=== PATIENT | male | born 1940 | race Caucasian/White ===

== ENCOUNTER 2023-09-17 11:21 | Emergency (ER) | payer MEDICARE, BC, SELFPAY ==
[2023-09-17] VITALS (7 sets, daily range): BP systolic 123–166; BP diastolic 57–78; BMI 23.1
[2023-09-17 12:09] LABS: % Basophils 0.2 % (0-2); % Eosinophils 0.4 % (0-6); % Immature Granulocytes 0.4 % (0-0.5); % Lymphocytes 14.9 % (20.5-51.1); % Neutrophils 79.1 % (42.2-75.2); Absolute Lymphocytes 0.7 10^3/uL (1.2-3.4); Absolute Monocytes 0.2 10^3/uL (0.1-0.6); Absolute Neutrophils 3.8 10^3/uL (1.4-6.5); Hematocrit 35.1 % (39.0-52.0); Hemoglobin 12.4 g/dL (13.0-18.0); Mean Corp Hgb Conc. 35.3 g/dL (33.0-37.0); Mean Corpuscular Hgb 34.4 pg (27.0-31.0); Mean Corpuscular Volume 97.5 fL (80.0-94.0); Mean Platelet Volume 10.5 fL (7.4-10.4); Nucleated Red Blood Cells % 0 % (-); Platelet Count 206 10^3/uL (130-400); Red Cell Dist. Width 12.8 % (11.5-14.5); White Blood Cell Count 4.8 10^3/uL (4.8-10.8)
[2023-09-17 12:13] LABS: ALT (SGPT) 29 U/L (0-50); AST (SGOT) 30 U/L (17-59); Albumin 4.4 g/dl (3.5-5.0); Alkaline Phosphatase 78 U/L (38-126); Blood Urea Nitrogen 25 mg/dl (9-20); Calcium 9.8 mg/dl (8.4-10.2); Carbon Dioxide 28 mmol/L (22-30); Chloride 98 mmol/L (98-107); Estimated Creatinine Clearance 46 ml/min; Glucose 172 mg/dl (70-99); Potassium 4.5 mmol/L (3.5-5.1); Sodium 133 mmol/L (135-145); Total Bilirubin 0.6 mg/dl (0.2-1.3); eGFR > 60.00
[2023-09-17 12:21] LABS: Troponin I < 0.012 ng/ml
--- NOTE | 2023-09-17 13:08 | ED.GENMED ---
History of Present Illness
General
Chief Complaint: Weakness
Source: patient and ambulance crew
Exam Limitations: none
Time Seen by Provider: 09/17/23 11:59
Nursing documentation reviewed up to this point in time: agreed with
History of Present Illness
History of Present Illness:
83-year-old male presents emergency room complaining of weakness, feeling sick and nauseous. He was walking in the kitchen and developed increasing weakness and nausea. He fell into a wall. He denies hitting his head, loss of consciousness or
neck pain.
Past History
Past History
ED Past Medical History: GERD, HTN, Hypercholesterolemia, Psychiatric (Anxiety) and Other (Constipation, irritable bowel)
ED Past Surgical History: Tonsilectomy
Social History
Tobacco: Non-smoker
Alcohol: None
Personal:
Living: with family
Employment: Retired
Family History
Family History: Other (Noncontributory)
Review of Systems
Review of Systems
Allergies reviewed?: Yes
All Other Systems: Not applicable
Constitutional: Reports no symptoms
EENT: Reports no symptoms
Respiratory: Reports no symptoms
Cardiac: Reports no symptoms
ABD/GI: Reports nausea
: Reports no symptoms
Musculoskeletal: Reports no symptoms
Neurological: Reports weakness
Endocrine: Reports no symptoms
Hematologic/Lymphatic: Reports no symptoms
Psychiatric: Reports no symptoms
Phy Exam
Physical Exam
Physical Exam:
Physical Exam
General: no apparent distress, not acutely ill
Neck: supple. no meningeal signs. normal posterior pharynx
Heart: s1/s2 bradycardia, no murmur. equal radial
pulses.
HEENT: Pupils equal round reactive to light, EOMI
Lungs: no acute respiratory distress. clear bilaterally, mild chest wall tenderness to palpation
Abdomen: normal bowel sounds. not tender. no CVAT
Neuro: alert and oriented. no focal neurological deficits cranial nerves II through XII intact
Skin: no rash
Psychiatric: well kept. interactive and cooperative
Extremities: no edema. no calf tenderness. negative homans. good distal pulses
Course
Orders/Labs/Results
Orders:
Orders
09/17/23 11:26
Electrocardiogram (*1) Urgent
Reason for Study: Chest Pain
EKG- Treatment ONCE
09/17/23 11:40
Cardiac Monitoring- Treatment ONCE
09/17/23 11:41
Complete Blood Count/With Diff Urgent
Comprehensive Metabolic Panel Urgent
Troponin I Urgent
09/17/23 12:35
CR Chest - 2 Views Urgent
Comment:
Reason For Exam: fall, hit chest
Abnormal Lab Results
09/17/23
11:41
RBC 3.60 L 10^6/uL
(4.70-6.10)
Hgb 12.4 L g/dL
(13.0-18.0)
Hct 35.1 L %
(39.0-52.0)
MCV 97.5 H fL
(80.0-94.0)
MCH 34.4 H pg
(27.0-31.0)
MPV 10.5 H fL
(7.4-10.4)
Absolute Lymphs (auto) 0.7 L 10^3/uL
(1.2-3.4)
Neutrophils % 79.1 H %
(42.2-75.2)
Lymphocytes % 14.9 L %
(20.5-51.1)
Sodium 133 L mmol/L
(135-145)
BUN 25 H mg/dl
(9-20)
Glucose 172 H mg/dl
(70-99)
09/17/23 11:41
09/17/23 11:41
Vital Signs
Initial and Last Documented VS:
Initial Vital Signs
Pulse Resp BP
49 11 124/57
09/17/23 11:24 09/17/23 11:24 09/17/23 11:24
Last Documented Vital Signs
Pulse Resp BP Pulse Ox
59 17 162/78 98
09/17/23 15:45 09/17/23 15:45 09/17/23 15:00 09/17/23 15:45
MDM/Problems Addressed
Differential Diagnosis Includes:
Near syncope, tachybradycardia syndrome
MDM/Problems Addressed:
83-year-old male with tachybradycardia syndrome, near syncope episode. Cardiology consulted to see patient and evaluate for pacemaker. Patient has followed with Dr. Holly. Await cardiology consult and patient decision on whether he wants to
stay for pacemaker.
Chronic conditions affecting care:
Tachybradycardia syndrome
Acute Exacerbation and/or Progression of Chronic Illness: Arrhythmia
*Radiology
Radiology exam reviewed: radiology read reviewed (Chest x-ray no acute findings)
*Pulse Oximetry
Patient hypoxic: no
*EKG
Interpreted by ED Provider?: Yes
EKG Intrepretation Date: 09/17/23
EKG Intrepretation Time: 11:30
Interpretation: abnormal
Comparison EKG: no changes
Heart Rate: 45
Rate: bradycardiac
Rhythm: sinus
[place]: normal axis
Interval: normal interval
QRS Pattern: normal QRS
Ischemia: no ischemia
*Machine Burrer Interpretation
Rate: bradycardiac
Interpretation: abnormal
Heart Rate: 45
Rhythm: sinus
*Critical Care Note
Total Time (30-74mins, 75-104mins- exclusive of procedures): 30
comment:
Critical care statement: A total of 30 minutes of critical care time was provided for this patient. This includes management of unstable vital signs, evaluation of the patient at bedside, reviewing the patient's pertinent medical records, discussion
with consultants, review of old EKGs and review of pertinent medical records. This time with separate from time utilized to perform the aforementioned documented procedures
Patient Management
Social determinants of health affecting care: Living situation
Discussion with other providers: Crime Investigator Special Agent (Cardiology, Dr. Frank)
ED Attending Note
-
Portions of this chart may have been created with voice recognition software.� Occasional wrong word or��sound alike� substitutions may have occurred due to the inherent limitations of voice recognition software.
Discharge Plan
Departure
Patient Disposition: Home (Routine Discharge)
Date of Disposition: 09/17/23
Time of Disposition: 15:43
Patient with high blood pressure during this ER visit?: Yes
Condition: Good
Discharge Problem:
Near syncope, Bradycardia with 41-50 beats per minute
Instructions: Near Fainting (DC)
Prescriptions:
No Action
clopidogrel 75 mg Tablet
75 mg PO QPM
desloratadine 5 mg Tablet
5 mg PO DAILY PRN (Reason: Allergies)
rosuvastatin 20 mg Tablet
20 mg PO DAILY
polyethylene glycol 3350 [Miralax] 17 gram Powder In Packet
17 g PO DAILY
magnesium oxide 400 mg (241.3 mg magnesium) tablet
400 mg PO BID
amlodipine 10 mg tablet
10 mg PO QPM
pantoprazole 40 mg tablet,delayed release (DR/EC)
40 mg PO DAILY
buspirone 30 mg tablet
30 mg PO BID
lisinopril 10 mg tablet
10 mg PO DAILY
Linzess 290 mcg capsule
290 mcg PO DAILY
Ure-Na 15 gram Powder In Packet
1 packet PO NOON
lorazepam 0.5 mg tablet
0.5 mg PO HS
olopatadine [Pataday] 0.2 % Drops
1 drp OPHTHALMIC (EYE) DAILY PRN (Reason: allergy symptoms)
Referrals:
Holly,Herrera D., MD [Active] -
Daniel Jimenez MD [Family Provider] -
Activity Restrictions/Additional Instructions:
Please follow up with Dr. Holly for pacemaker placement. Return to the ER if you pass out.
Interventions
Interventions:
*Risk Screen - Suicide Last Done: 09/17/23 11:40
*General Assessment Last Done: 09/17/23 11:33
*Neglect/Abuse Screening Last Done: 09/17/23 11:33
ED- Fall Risk Assessment Last Done: 09/17/23 15:45
*ED COVID-19 Vaccine History Last Done: 09/17/23 11:39
*Nursing Disposition Last Done: 09/17/23 15:45
ED- Cardiac Assessment Last Done: 09/17/23 11:43
ED- Neurological Assessment Last Done: 09/17/23 11:43
ED- Pulmonary Assessment Last Done: 09/17/23 11:43
Discharge Date and Time
Discharge Date/Time: 09/17/23 15:45
Print Language: WALLISIAN
--- NOTE | 2023-09-17 14:16 | CON.CAR ---
Addendum entered and electronically signed by Demian Mujica MD 09/17/23 15:45:
I saw and examined the patient.
The Railroad Brake Operator's note was reviewed and I agree with the note.
Comment: Briefly, 83-year-old man past medical history of symptomatic bradycardia who presents following an episode of weakness this morning and we are asked to evaluate
Episode occurred earlier this morning, patient arose from bed and felt weak and had a controlled fall to the ground but no freya syncope
Patient tells me he is currently back to his baseline
Heart rate and blood pressure are stable
Twelve-lead ECG is unremarkable
Currently planned for permanent pacemaker with Dr. Holly in November. Discussed with patient, daughter and at bedside and son via speaker phone and suggested that we try to move up pacemaker implant and they are agreeable.
Stable for discharge from my perspective with plan for outpatient pacemaker implant in the near future
Original Note:
Consultation
Consultation Request
Date/Time Consultation Requested: 09/17/2023
Date/Time Consultation Performed: 09/17/2023
Requesting Provider: Dr. Wetzel
Performing Provider: Dr. Mujica
Reason for Consultation: Near syncope, bradycardia
Medical History
-
History of Present Illness:
HPI: Rex is an 83 year old male with PMH of paroxysmal atrial tachycardia, hypertension, hyperlipidemia, bradycardia. He has known symptomatic bradycardia and was seen in consultation by Dr. Holly regarding pacemaker implant 08/31/2023. He was
symptomatic with ongoing fatigue, but a the time had no episodes of near syncope or syncope. Recent monitor showed that his HR drops to the 30s to 40s at times. He was arranged for PPM implantation 11/23/23 as patient preferred waiting until after
he had hernia repair surgery. Hernia repair was initially scheduled 09/12, but patient needed to reschedule due to family conflict on that date. He is currently scheduled for hernia repair 10/25/2023. Early this AM, he woke up and felt lightheaded,
weak, and nauseous. He then collapsed, falling into a nearby wall, hitting his chest and arm. He and his deny any loss of consciousness or head injury. He states he checked his BP and it was in the 140s around the time of his event, but does
note it has been lower at times. He came to ER for evaluation and workup has been unremarkable other than bradycardia with HR in the 40s. Cardiology consulted for evaluation given near syncope with known symptomatic bradycardia. He feels well
currently other than some soreness in his chest.
PMH:
Sinus bradycardia
Paroxysmal atrial tachycardia
Coronary calcification by CTA
HTN
Hyperlipidemia
Past Medical History
Past Medical History: Other (In HPI)
Past Surgical History: Tonsilectomy
Social History
Tobacco: Non-Smoker
Alcohol: Occasional
Drug: None
Personal:
Living: With Family
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
Family History
Family History: Cancer
Allergies / Home Medications
Allergy/AdvReac Type Severity Reaction Status Date / Time
aspirin Allergy Intermediate Unknown Verified 09/17/23 11:33
codeine Allergy Nausea Verified 09/17/23 11:33
tramadol Allergy Nausea Verified 09/17/23 11:33
�Medication �Instructions �Recorded �Confirmed �Type
clopidogrel 75 mg tablet 75 mg PO DAILY Blood clot 12/20/21 09/17/23 History
prevention/tx
desloratadine 5 mg tablet 5 mg PO DAILY PRN Allergies 12/20/21 09/17/23 History
rosuvastatin 20 mg tablet 20 mg PO DAILY High cholesterol 12/20/21 09/17/23 History
amlodipine 10 mg tablet 10 mg PO QPM 09/17/23 09/17/23 History
buspirone 30 mg tablet 30 mg PO BID 09/17/23 09/17/23 History
linaclotide 290 mcg capsule 290 mcg PO DAILY 09/17/23 09/17/23 History
(Linzess)
lisinopril 10 mg tablet 10 mg PO DAILY 09/17/23 09/17/23 History
lorazepam 0.5 mg tablet 0.5 mg PO HS 09/17/23 09/17/23 History
magnesium oxide 400 mg (241.3 mg 400 mg PO BID 09/17/23 09/17/23 History
magnesium) tablet
olopatadine 0.2 % eye drops 1 drp ophthalmic (eye) DAILY PRN 09/17/23 09/17/23 History
allergy
pantoprazole 40 mg tablet,delayed 40 mg PO DAILY 09/17/23 09/17/23 History
release
polyethylene glycol 3350 17 gram 17 g PO DAILY 09/17/23 09/17/23 History
oral powder packet (Miralax)
urea 15 gram oral powder packet 1 packet PO NOON 09/17/23 09/17/23 History
(Ure-Na)
Review of Systems
-
History Source: Patient
All other systems: Negative unless noted
Physical Exam
Vital Signs
Pulse Resp BP Pulse Ox
43 21 123/59 99
09/17/23 12:30 09/17/23 12:30 09/17/23 12:00 09/17/23 12:30
Lab Results
09/17/23 11:41
09/17/23 11:41
Troponin I < 0.012 ng/ml 09/17/23 11:41
Physical Exam
General: Well Developed, Well Nourished and No Apparent Distress
HEENT: Normocephalic, Anicteric and Moist Mucous Membranes
Respiratory: Clear and Non Labored Respirations
Cardiac: S1/S2 and Regular Rhythm
Musculoskeletal: No Clubbing, No Cyanosis and No Edema
Skin: Warm and Dry
Neuro: AO x 3 and Nonfocal/Grossly Intact
Psych: Calm
Impression / Plan
-
PCP: Dr. Jimenez
Physical Geographer: Dr. Stephenson
Electrophysiology: Dr. Holly
Impression:
Sinus bradycardia
Paroxysmal atrial tachycardia
Coronary calcification by CTA
HTN
Hyperlipidemia
Plan:
-Presented after episode of near syncope this morning. Awoke and felt weak and nauseous and collapsed, falling into the wall, hitting his elbow and chest. Denies any overt syncope or loss of consciousness.
-He has known symptomatic bradycardia with fatigue. He is not on any AV indigo blockers. Continue to avoid.
-EKG from ER reviewed, SR with HR 45 bpm.
-Currently scheduled for PPM implant 11/23/[address] Holly.
-Discussed with what appears to be progressively worsening symptomatic bradycardia, ideally would implant pacemaker sooner.
-As he has not had any overt syncope, does not need urgent pacemaker implantation and patient prefers to avoid hospitalization currently.
-Will reach out to procedure schedulers to see if we are able to facilitate a sooner pacemaker implant appointment.
-Otherwise, he is stable from a cardiac standpoint. His blood pressures are stable. Should continue amlodipine and lisinopril.
-Continue Plavix which he is on for risk factor reduction given coronary calcification seen on prior CTA. Intolerant to aspirin.
-Explained to patient and family that he if he goes home without PPM implantation, he is at higher risk of recurrent episodes of symptomatic bradycardia with near syncope and potentially syncope and injuries that may occur as a result of this.
HPI: Rex is an 83 year old male with PMH of paroxysmal atrial tachycardia, hypertension, hyperlipidemia, bradycardia. He has known symptomatic bradycardia and was seen in consultation by Dr. Holly regarding pacemaker implant 08/31/2023. He was
symptomatic with ongoing fatigue, but a the time had no episodes of near syncope or syncope. Recent monitor showed that his HR drops to the 30s to 40s at times. He was arranged for PPM implantation 11/23/23 as patient preferred waiting until after
he had hernia repair surgery. Hernia repair was initially scheduled 09/12, but patient needed to reschedule due to family conflict on that date. He is currently scheduled for hernia repair 10/25/2023. Early this AM, he woke up and felt lightheaded,
weak, and nauseous. He then collapsed, falling into a nearby wall, hitting his chest and arm. He and his deny any loss of consciousness or head injury. He states he checked his BP and it was in the 140s around the time of his event, but does
note it has been lower at times. He came to ER for evaluation and workup has been unremarkable other than bradycardia with HR in the 40s. Cardiology consulted for evaluation given near syncope with known symptomatic bradycardia. He feels well
currently other than some soreness in his chest.
Data Reviewed
-
EKG: Tracing Personally Visualized and interpreted
Radiology: Report Reviewed by me
Labs: Labs Reviewed by me
Old Records: Reviewed
== END 2023-09-17 15:45 | disposition home or self-care (01) ==
LOC: EMR 11:21
PROVIDERS: EMERGENCY PHYSICIAN Emergency Medicine; FAMILY PHYSICIAN Internal Medicine
DX: R53.1 Weakness (principal); K21.9 Gastro-esophageal reflux disease without esophagitis; I10 Essential (primary) hypertension; E78.00 Pure hypercholesterolemia, unspecified; F41.9 Anxiety disorder, unspecified; I25.10 Atherosclerotic heart disease of native coronary artery without angina pectoris; K58.9 Irritable bowel syndrome, unspecified; Z83.49 Family history of other endocrine, nutritional and metabolic diseases
CPT/HCPCS: 99283; 71046; 80053; 84484; 85025; 93005

== ENCOUNTER 2023-10-13 08:02 | Day surgery (SDC) | payer MEDICARE, BC, SELFPAY ==
[2023-10-13] VITALS (18 sets, daily range): BP systolic 122–158; BP diastolic 69–83; BMI 22.6
--- NOTE | 2023-10-13 10:22 | ITS.CL.PACE ---
Economics Instructor - Pacemaker Implant
Pacemaker Implant
Procedure Report:
Date of Procedure: October 13, 2023
Patient : 1940
Procedure: Pacemaker Implantation.
Indication: Sick sinus syndrome symptomatic
�
Implants:
Pulse Generator: Medtronic; Model# W1 DR 01; SN: [id number]
RA Lead: Medtronic; Model# 4574; SN: [id number]
RV Lead: Medtronic; Model# 4074; SN: [id number]
�
Technique: A time out was performed. The procedure site was identified. The patient was anesthetized by the anesthesia service. Preoperative sedation was administered. The patient was prepped and draped in the usual fashion. Local anesthetic was
applied to the left prepectoral subcutaneous tissue. A 3 inch incision was made 2.5 inches below the left clavicle. A subcutaneous pocket was created with blunt and sharp dissection and hemostasis controlled with Bovie cautery. The left axillary
vein was accessed within the pocket without difficulty. Hemostasis was excellent. The leads were introduced with 7 Fr hemostatic peel away introducer sheaths. The ventricular lead was placed at the right ventricular apex. The atrial lead was placed
in the right atrial appendage. 10 volt pacing did not capture the diaphragm. The leads were secured to the pectoralis muscle and fascia. The leads were appropriately attached to the device. The pocket was irrigated with antibiotic solution. The
device and leads were placed in the pocket. The incision was closed in three layers with absorbable suture. The estimated blood loss was minimal. There were no complications.��
�
Lead Analysis:
RA lead: P: 3.2 mV; Threshold: 0.4 V @ 0.5��ms; Impedance: 640 ohms.
RV lead: R: 7 mV; Threshold: 0.75 V @ 0.5��ms; Impedance: 890 ohms.
�
Final Programming: AAIR�DDDR 60-130
�
Conclusion: Uncomplicated Medtronic pacemaker implant.
�
Recommendation: Routine post pacemaker care.
�
[2023-10-13] MEDS: TYLENOL 650 MG PO ×3 (11:09→19:48)
[2023-10-13] MEDS: NSS 500 IV (11:44)
[2023-10-13] MEDS: LINZESS 290 MCG PO (11:44)
[2023-10-13] MEDS: ZESTRIL 10 MG PO (12:28)
[2023-10-13] MEDS: PROTONIX 40 MG PO (12:29)
--- NOTE | 2023-10-13 14:02 | PTCARENOTE ---
Received patient from pacu after PPM placed left upper chest. Pressure dressing in place over aquacel dressing which is dry and intact with immobilizer in place. Oriented to the room and plan of care. Call white in reach, son at the bedside.
--- NOTE | 2023-10-13 15:21 | CM ---
CM following for DC planning needs.
Met w/ patient at bedside to complete initial assessment. Pt. c/o pain so conversation was cut short.
Pt. was indep. prior to admission, resides w/ spouse.
Anticipated DC plan is for home, no needs.
Will cont. to follow.
[2023-10-13] MEDS: MIRALAX 17 GRAMS PO (15:56)
[2023-10-13] MEDS: ANCEF 5 IV ×2 (15:57→23:02)
[2023-10-13] MEDS: ANESTHETIC LOZENGE 1 LOZENGE PO (15:57)
[2023-10-13] MEDS: FLUSH (NSS) 2 FLUSH IV (15:58)
--- NOTE | 2023-10-13 16:28 | PTCARENOTE ---
Patient with several complaints, having 6/10 discomfort at the incisional site which is dry and intact, no signs of hematoma noted. Does not like the immobilizer, feels like it is constricting his breathing. Immobilizer adjusted, reinforced
importance and activity restrictions. Complaining of a dry mouth and sore throat, given cepacol lozenge. Worried about medications he missed this morning, all verified with him and patient given his daily dose of miralax as requested. Medicated for
pain with tylenol, assisted to the bathroom, voided and moved his bowels. Sitting oob in the chair, son and his in visiting, call white within reach.
[2023-10-13] MEDS: CRESTOR 20 MG PO (18:18)
[2023-10-13] MEDS: OCEAN, SALINE MIST 1 SPRAYS NASAL (18:19)
[2023-10-13] MEDS: NORVASC 10 MG PO (18:19)
[2023-10-13] MEDS: BUSPAR 30 MG PO (19:46)
[2023-10-13] MEDS: MAGNESIUM OXIDE 500 MG PO (19:46)
[2023-10-13] MEDS: ATIVAN 1 MG PO (22:09)
[2023-10-14] MEDS: TYLENOL 650 MG PO (00:01)
[2023-10-14] MEDS: ANESTHETIC LOZENGE 1 LOZENGE PO (03:02)
[2023-10-14 03:03] VITALS: BP 141/83
[2023-10-14] MEDS: FLEXERIL 5 MG PO (03:51)
[2023-10-14 03:57] LABS: Hematocrit 35.8 % (39.0-52.0); Hemoglobin 12.8 g/dL (13.0-18.0); Mean Corp Hgb Conc. 35.8 g/dL (33.0-37.0); Mean Corpuscular Hgb 35.1 pg (27.0-31.0); Mean Corpuscular Volume 98.1 fL (80.0-94.0); Mean Platelet Volume 10.4 fL (7.4-10.4); Platelet Count 195 10^3/uL (130-400); Red Blood Cell Count 3.65 10^6/uL (4.70-6.10); Red Cell Dist. Width 12.4 % (11.5-14.5)
--- NOTE | 2023-10-14 04:12 | PTCARENOTE ---
Assumed care of patient at approx 23:30. Tele monitor shows Apaced. Pt c/o multiple times of: sore throat, left shoulder 'muscle spasm', and pain at the surgical site. Left chest wall dressing C/D/I and pressure dressing present. LUE in sling. Pt
aware of activity restrictions. Patient refuses to take any narcotics d/t hx of IBS and gastroparesis. Tylenol administered for discomfort, and had no relief. Despite repositioning patient and relaxation technique. Pt still complains of 8/10 pain at
surgical site. Susan Olivier CVPA made aware and orders placed for 5mg Flexeril. Medication administered--see MAR for further details. Pt also received Lozenge for sore throat and still c/o of sore throat and congestion. POC ongoing. Call white
within reach.
[2023-10-14 04:20] LABS: Blood Urea Nitrogen 16 mg/dl (9-20); Calcium 9.5 mg/dl (8.4-10.2); Carbon Dioxide 25 mmol/L (22-30); Chloride 95 mmol/L (98-107); Estimated Creatinine Clearance 50 ml/min; Glucose 100 mg/dl (70-99); Magnesium 1.9 mg/dl (1.6-2.3); Potassium 4.2 mmol/L (3.5-5.1); Sodium 132 mmol/L (135-145); eGFR > 60.00
[2023-10-14] MEDS: LINZESS 290 MCG PO (06:31)
[2023-10-14 06:35] VITALS: BP 141/80
[2023-10-14] MEDS: BUSPAR 30 MG PO (07:25)
[2023-10-14] MEDS: PROTONIX 40 MG PO (07:25)
[2023-10-14] MEDS: MAGNESIUM OXIDE 500 MG PO (07:25)
[2023-10-14] MEDS: ZESTRIL 10 MG PO (07:29)
[2023-10-14] MEDS: MIRALAX 17 GRAMS PO (08:35)
--- NOTE | 2023-10-14 08:46 | W.PN.CARDCBS ---
Addendum entered and electronically signed by Herrera Holly MD 10/14/23 10:17:
Patient reporting pain this a.m. He seems almost inconsolable
Site clean dry and intact without hematoma
Chest x-ray reviewed with stable lead positions in the right atrium right ventricle
Appropriate atrial sensing and pacing as well as ventricular sensing on telemetry
Exam:
No hematoma
Otherwise well and as per INTEGRATED CIRCUIT IC LAYOUT DESIGNER note
Impression:
SSS/Symptomatic bradycardia
post DC PPM Medtronic 10/14/23
HTN
HLD
NSVT
chronic mild hyponatremia
GERD
BPH
Gastroparesis
CAD by coronary calcium score
b/l inguinal hernia for surgery 11/28
Plan:
post device, mild-mod inc pain
tylenol for pain PRN, refusing narcotics with gastroparesis
site stable pressure dressing removed
tele Ap occ Vpacing
CXR no PTX, leads in position
Hold plavix 7 days
HTN - continue lisinopril, amlodipine
Activity restrictions reviewed
inc check 1 week
home today
Original Note:
Today's Communication / Plan
-
Post DC PPM
stable for d/c home
Impression / Plan
-
PCP: Daniel Jimenez MD
CDY: Dr. Stephenson
Impression:
SSS/Symptomatic bradycardia
post DC PPM Medtronic 10/14/23
HTN
HLD
NSVT
chronic mild hyponatremia
GERD
BPH
Gastroparesis
CAD by coronary calcium score
b/l inguinal hernia for surgery 11/28
Plan:
post device, mild-mod inc pain
tylenol for pain PRN, refusing narcotics with gastroparesis
site stable pressure dressing removed
tele Ap occ Vpacing
CXR no PTX, leads in position
Hold plavix 7 days
HTN - continue lisinopril, amlodipine
Activity restrictions reviewed
inc check 1 week
home today
Progress Note - Chiller Technician
Subjective
Date of Service: October 14, 2023
mild-mod inc pain some relief with tylenol, no cp, sob
Objective
Labs:
10/14/23 03:13
10/14/23 03:13
Labs
Hgb 12.8 g/dL (13.0-18.0) L 10/14/23 03:13
Hct 35.8 % (39.0-52.0) L 10/14/23 03:13
Plt Count 195 10^3/uL (130-400) 10/14/23 03:13
Sodium 132 mmol/L (135-145) L 10/14/23 03:13
Potassium 4.2 mmol/L (3.5-5.1) 10/14/23 03:13
BUN 16 mg/dl (9-20) 10/14/23 03:13
Creatinine 1.0 mg/dL (0.7-1.3) 10/14/23 03:13
Glucose 100 mg/dl (70-99) H 10/14/23 03:13
Vital Signs and I&O:
Vital Signs
Temp Pulse Resp BP Pulse Ox
97.9 F 60 18 141/80 96
10/14/23 06:34 10/14/23 08:00 10/14/23 06:34 10/14/23 07:29 10/14/23 06:34
Vital Signs
Temp Pulse Resp BP Pulse Ox
97.9 F 60 18 141/80 96
10/14/23 06:34 10/14/23 08:00 10/14/23 06:34 10/14/23 07:29 10/14/23 06:34
Intake & Output
10/12/23 10/13/23 10/14/23 10/15/23
06:59 06:59 06:59 06:59
Intake Total 1800 / 1800
Output Total 0 / 0
Balance -400 / -400
Physical Exam
Physical Exam
NAD< AOX3
S1, S2, RRR
CTAB, non labored, no wheeze
SNTND bsx4
L CW Aquacel dressing c/d/i no HT, pressure dressing removed
--- NOTE | 2023-10-14 09:43 | PTCARENOTE ---
Received patient this morning resting in bed, aquacel dressing was dry and intact. Patient seen by Dr. Holly and is ok for discharge. Chasity Sheehan FIBERGLASS BONDING MACHINE TENDER in to see the patient and pressure dressing removed. Patient stating he did not expect as much pain as
he had from procedure, states 'maybe I have a low pain tolerance'. OOB ambulating in the room without difficulty, ate a full breakfast, all morning meds given. Reviewed discharge instructions in detail and post op restrictions with the patient and
his son and they state their understanding. Patient discharged home with his son, aware of follow up appointments and that he can resume plavix in 7 days.
--- NOTE | 2023-10-14 10:14 | CM ---
Pt. for DC to home today.
There are no identified needs.
Plan is for home, no needs.
--- NOTE | 2023-10-14 10:56 | W.DS.TRANS ---
DC Summary - Corporate Travel Counselor
-
Discharge Instructions:
Discharge Diagnosis/Procedures Pacemaker implant
Diet Low Cholesterol
Driving Restrictions No driving for 1 week
Bathing Restrictions OK to Shower
Instructions:
Stand-Alone Forms: DC Inst - Implanted Device
Changes to Home Medications: No
Discharge Medications:
DC Medications w/original date entered in [facility]
clopidogrel 75 mg tablet 75 mg PO QPM Blood clot prevention/tx 12/20/21
desloratadine 5 mg tablet 5 mg PO DAILY PRN Allergies 12/20/21
rosuvastatin 20 mg tablet 20 mg PO DAILY High cholesterol 12/20/21
amlodipine 10 mg tablet 10 mg PO QPM Blood Clot Prevention/Tx 09/17/23
buspirone 30 mg tablet 30 mg PO BID Mental Health/Anxiety 09/17/23
linaclotide 290 mcg capsule (Linzess) 290 mcg PO DAILY Gastrointestinal Issue 09/17/23
lisinopril 10 mg tablet 10 mg PO DAILY Blood Pressure 09/17/23
lorazepam 0.5 mg tablet 1 mg PO HS Mental Health/Anxiety 09/17/23
magnesium oxide 400 mg (241.3 mg magnesium) tablet 400 mg PO BID Electrolyte Repletion 09/17/23
olopatadine 0.2 % eye drops 1 drp ophthalmic (eye) DAILY PRN allergy symptoms 09/17/23
pantoprazole 40 mg tablet,delayed release 40 mg PO DAILY Gastrointestinal Issue 09/17/23
polyethylene glycol 3350 17 gram oral powder packet (Miralax) 17 g PO DAILY Constipation 09/17/23
urea 15 gram oral powder packet (Ure-Na) 1 packet PO NOON Kidney Disease 09/17/23
Ib Kennedi 1 tab PO HS 10/13/23
Home Medication Changes
Pending Results: No
== END 2023-10-14 09:50 | disposition home or self-care (01) ==
LOC: CATH 08:02
PROVIDERS: Nurse Practitioner Adult Health; ATTENDING PHYSICIAN Internal Medicine Cardiovascular Disease; FAMILY PHYSICIAN Internal Medicine; OTHER PHYSICIAN Internal Medicine Interventional Cardiology
DX: I49.5 Sick sinus syndrome (principal); I10 Essential (primary) hypertension; E78.5 Hyperlipidemia, unspecified; I47.20 Ventricular tachycardia, unspecified; E87.1 Hypo-osmolality and hyponatremia; K21.9 Gastro-esophageal reflux disease without esophagitis; N40.0 Benign prostatic hyperplasia without lower urinary tract symptoms; K31.84 Gastroparesis; I25.10 Atherosclerotic heart disease of native coronary artery without angina pectoris; Z79.02 Long term (current) use of antithrombotics/antiplatelets; Z79.899 Other long term (current) drug therapy
CPT/HCPCS: 33208; 71045; 80048; 83735; 85027; 93005; C1785; C1892; C1898

== ENCOUNTER 2023-10-15 10:51 | Inpatient (IN) | payer MEDICARE, BC, SELFPAY ==
[2023-10-15] VITALS (9 sets, daily range): BP systolic 124–162; BP diastolic 67–80; BMI 22.4; BMI 22.0
--- NOTE | 2023-10-15 07:37 | ED.GENMED ---
History of Present Illness
General
Chief Complaint: Chest Problem
Source: patient and family
Exam Limitations: none
Time Seen by Provider: 10/15/23 07:07
Nursing documentation reviewed up to this point in time: agreed with
History of Present Illness
History of Present Illness:
83 yr old male with history of sick sinus syndrome hypertension hyperlipidemia nonsustained V. tach reflux benign prostatic hyperplasia gastroparesis CAD bilateral inguinal hernia surgery presented to the ED for evaluation of pain. Pt had Pacemaker
placed here on (2 d ago). Son reports he had some chest pain at PM site since this was done with son reports pain is getting worse and now since last night patient has had pain with taking a deep breath worse with movement. He denies any
actual shortness of breath. He denies any fever or chills.
Pacemaker is dual-chamber Medtronic
Past History
Past History
ED Past Medical History: GERD, HTN, Hypercholesterolemia, Psychiatric (Anxiety) and Other (Constipation, irritable bowel)
ED Past Surgical History: Tonsilectomy
Social History
Tobacco: Non-smoker
Alcohol: None
Personal:
Living: with family
Employment: Retired
Family History
Family History: Other (Noncontributory)
Review of Systems
Review of Systems
Allergies reviewed?: Yes
All Other Systems: ROS reviewed and negative except as documented in HPI and ROS
Constitutional: Reports no symptoms
Respiratory: Reports trouble breathing and other (pain with deep breath )
Cardiac: Reports other (sore over PM insertion site )
ABD/GI: Reports no symptoms
: Reports no symptoms
Skin: Reports no symptoms
Neurological: Reports no symptoms
Psychiatric: Reports no symptoms
Phy Exam
General Physical Exam
General Presentation: no apparent distress
General age: appears stated age
General Skin: warm and dry
General Habitus: elderly
General Mental: alert
Cardiovascular Exam
Cardiovascular Exam: regular rate/rhythm, no murmur and normal peripheral pulses
Pulmonary Exam
Pulmonary Exam: lungs clear, no respiratory distress and other (left chest wall with scattered ecchymosis ; no erythema at site of PM )
Neurological Exam
Neurological Exam: alert and oriented x3
Musculoskeletal Exam
Musculoskeletal Exam: full ROM
Skin Exam
Skin Exam: normal color and warm/dry
Psychiatric Exam
Psychiatric Exam: normal mood/affect
Course
Orders/Labs/Results
Orders:
Orders
10/15/23
Electrocardiogram (*1) Stat
Comment: DONE EMR
10/15/23 05:58
ECG [Electrocardiogram (*1)] Urgent
Reason for Study: Chest Pain
EKG- Treatment ONCE
10/15/23 Breakfast
NPO
Allow oral meds: Yes
Allow clear liquids: Sips of Clears
NPO with Ice Chips: Yes
10/15/23 07:45
IV Insert/Care/Rem.- Treatment PRN
Chest [CR Chest - 2 Views ] Urgent
Comment:
Reason For Exam: pain left chest s/p PM insertion
10/15/23 08:26
Complete Blood Count/With Diff Urgent
Comprehensive Metabolic Panel Urgent
10/15/23 08:52
Acetaminophen 1000MG/100Ml [Ofirmev] 1,000 mg in 100 ml IV ONCE
Acetaminophen IV Indication:: ED Narcotic Naive Pt-ONCE
10/15/23 09:49
CARDIOLOGY CONSULT Routine
Consulting Provider: Cristopher Flores
Was physician already notified: Yes
Reason for consult: possible pacemaker implantation complication
10/15/23 10:15
Admit/Transfer Patient As Directed
Co-Sign Provider:
Level of Care: Inpatient admission
Assign to:: Telemetry
Physician / Group: Kelly Salazar
Diagnosis: Pneumothorax following ppm
Reason for Telemetry: Arrhythmia
Date to Stop Telemetry: 10/18/23
Time to Stop Telemetry: 11:00
Reason for Hospitalization: Pneumothorax following ppm
Expected length of stay greater than two midnights?: Yes
ELOS- Estimated Length of Stay in days: 2
I certify the patient meets the requirements for IP care: Yes
PRN Pain Medication Management As Directed
May give lesser potent ordered pain med per pt: Yes
preference::
Protocol:: Medication orders for pain may be administered in a
manner that supports deferring to patient preference
when the pt is:
- Requesting an ordered lesser potent pain medication.
Least to most potent pain medications are defined
as: acetaminophen < NSAID < tramadol < opioids
(morphine, oxycodone, hydromorphone).
- Requesting a lesser dose of the same medication IF
ORDERED.
- Requesting a less intrusive route of administration
if both routes are prescribed by the provider (PO <
IV).
10/15/23 10:19
Code Status As Directed
Resuscitation Status: Full Code
10/15/23 11:00
Loratadine [Claritin] 10 mg PO DAILY
10/16/23 06:00
CR Chest - 2 Views NOON
Comment:
Reason For Exam: follow up pneumothorax
10/18/23 11:00
DC Protocol for Telemetry ONCE
Abnormal Lab Results
10/15/23
08:26
RBC 3.80 L 10^6/uL
(4.70-6.10)
Hct 37.0 L %
(39.0-52.0)
MCV 97.4 H fL
(80.0-94.0)
MCH 35.5 H pg
(27.0-31.0)
Absolute Neuts (auto) 7.2 H 10^3/uL
(1.4-6.5)
Absolute Lymphs (auto) 0.8 L 10^3/uL
(1.2-3.4)
Absolute Monos (auto) 0.9 H 10^3/uL
(0.1-0.6)
Neutrophils % 80.3 H %
(42.2-75.2)
Lymphocytes % 8.8 L %
(20.5-51.1)
Monocytes % 9.7 H %
(1.7-9.3)
Sodium 134 L mmol/L
(135-145)
Chloride 97 L mmol/L
(98-107)
BUN 27 H mg/dl
(9-20)
10/15/23 08:26
10/15/23 08:26
Vital Signs
Initial and Last Documented VS:
Initial Vital Signs
Temp Pulse Resp BP Pulse Ox
98.0 F 67 19 143/75 95
10/15/23 06:04 10/15/23 06:04 10/15/23 06:04 10/15/23 06:04 10/15/23 06:04
Last Documented Vital Signs
Temp Pulse Resp BP Pulse Ox
98.0 F 60 15 134/73 95
10/15/23 06:04 10/15/23 08:30 10/15/23 08:30 10/15/23 08:28 10/15/23 08:33
Traffic Control Signaler consulted with Physician
Traffic Control Signaler consulted with physician?: Yes
Name of Physician Consulted: leon
MDM/Problems Addressed
Differential Diagnosis Includes:
Not limited to pneumothorax pneumonia muscular pain infection (less likely)
MDM/Problems Addressed:
Patient is an 83-year-old male status post pacemaker insertion on Wednesday has had left-sided chest pain though denies shortness of breath. He presents complaining of discomfort however no acute distress nontachycardic nonhypoxic lungs are clear.
Patient x-ray does show a small pneumothorax. Findings reviewed with interventional radiologist as well as admitting hospitalist. Cardiology made aware. Interventional radiology, Dr. Morin did look at image and recommends oxygen and repeat
chest x-ray in several hours to reassess. will adm .
Case reviewed with cardiology group on-call Dr. Flores will adm to hospitalist service.
Chronic conditions affecting care:
Recent pacemaker insertion
*Critical Care Note
Total Time (30-74mins, 75-104mins- exclusive of procedures): Not Applicable
Data Reviewed
Review of Other/Old Records Reveals: Discharge Summary
Patient Management
Discussion with other providers: Hospitalist and Delivery Driver/Customer Service
ED Attending Note
-
Portions of this chart may have been created with voice recognition software.� Occasional wrong word or��sound alike� substitutions may have occurred due to the inherent limitations of voice recognition software.
Discharge Plan
Departure
Patient Disposition: Admit
Date of Disposition: 10/15/23
Time of Disposition: 08:46
Admit to: Telemetry
Admit to doctor: hospitalist
Presentation/result/management discussed w/ accepting MD/DO: Hospitalist
Patient with high blood pressure during this ER visit?: Yes
Condition: Fair
Covid-19: Not Applicable
Discharge Problem:
Pneumothorax on left
Prescriptions:
No Action
clopidogrel 75 mg Tablet
75 mg PO QPM
Rx Instructions:
on hold since surgery
desloratadine 5 mg Tablet
5 mg PO DAILYPRN PRN (Reason: Allergies)
rosuvastatin 20 mg Tablet
20 mg PO DAILY
polyethylene glycol 3350 [Miralax] 17 gram Powder In Packet
17 g PO DAILY@1300
magnesium oxide 400 mg (241.3 mg magnesium) tablet
400 mg PO BID
amlodipine 10 mg tablet
10 mg PO QPM
pantoprazole 40 mg tablet,delayed release (DR/EC)
40 mg PO DAILY
buspirone 30 mg tablet
30 mg PO BID
lisinopril 10 mg tablet
10 mg PO DAILY
Linzess 290 mcg capsule
290 mcg PO DAILY
Ure-Na 15 gram Powder In Packet
1 packet PO Q48H@1200
lorazepam 0.5 mg tablet
1 mg PO HS
olopatadine 0.2 % Drops
1 drp BOTH EYES DAILYPRN PRN (Reason: allergy symptoms)
Ib Kennedi
1 tab PO HS
acetaminophen [Tylenol] 325 mg Tablet
650 mg PO Q6HPRN PRN (Reason: mild pain)
Referrals:
Daniel Jimenez MD [Family Provider] -
Interventions
Interventions:
*Risk Screen - Suicide Last Done: 10/15/23 06:04
*General Assessment Last Done: 10/15/23 06:04
*Neglect/Abuse Screening Last Done: 10/15/23 06:04
*ED COVID-19 Vaccine History Last Done: 10/15/23 06:04
ED- Cardiac Assessment Last Done: 10/15/23 06:53
ED- Pulmonary Assessment Last Done: 10/15/23 06:53
Discharge Date and Time
Print Language: CITIZEN OF [place]
[2023-10-15 08:41] LABS: % Basophils 0.1 % (0-2); % Eosinophils 0.9 % (0-6); % Immature Granulocytes 0.2 % (0-0.5); % Lymphocytes 8.8 % (20.5-51.1); % Monocytes 9.7 % (1.7-9.3); % Neutrophils 80.3 % (42.2-75.2); Absolute Eosinophils 0.1 10^3/uL (0-0.7); Absolute Lymphocytes 0.8 10^3/uL (1.2-3.4); Absolute Monocytes 0.9 10^3/uL (0.1-0.6); Absolute Neutrophils 7.2 10^3/uL (1.4-6.5); Hemoglobin 13.5 g/dL (13.0-18.0); Mean Corp Hgb Conc. 36.5 g/dL (33.0-37.0); Mean Corpuscular Hgb 35.5 pg (27.0-31.0); Mean Corpuscular Volume 97.4 fL (80.0-94.0); Nucleated Red Blood Cells % 0 % (-); Platelet Count 187 10^3/uL (130-400); Red Cell Dist. Width 12.6 % (11.5-14.5)
--- NOTE | 2023-10-15 09:06 | HPS.HSE ---
Family Physician
-
Family Physician: Daniel Jimenez
Chief Complaint
-
chest pain
History of Present Illness
83M SSS recent ppm few days ago HTN HLD GERD BPH Gastroparesis IBS CAD p/w left sided chest pain pleuritic progressive past 24 h. VSS on room air. Labs unremarkable. EKG NSR. CXR noted small left pneumothorax. Discussed with IR no plans for
chest tube placement at this time, recommended oxygen supplementation and repeat imaging later in day. NPO for now in case of need for intervention. Could consider resuming diet if repeat CXR remains stable.
Medical History
Past Medical History
Past Medical History: Reports Other (as above)
Past Surgical History: Reports Other (as above)
Social History
Tobacco: Non-smoker
Alcohol: None
Drug: None
Personal:
Living: With Family
Employment: Retired
Family History
Family History: Not pertinent (reviewed)
Allergies / Home Medications
Allergies reflects when Allergies were last updated in [employer].
Home Medications with original date entered in [employer]
Allergy/Medication List:
Allergies
Allergy/AdvReac Type Severity Reaction Status Date / Time
aspirin Allergy Severe esopheageal Verified 10/15/23 06:03
pain
codeine Allergy Intermediate Nausea Verified 10/15/23 06:03
tramadol Allergy Intermediate Nausea Verified 10/15/23 06:03
Home Medications
clopidogrel 75 mg tablet 75 mg PO QPM Blood clot prevention/tx 12/20/21
desloratadine 5 mg tablet 5 mg PO DAILYPRN PRN Allergies 12/20/21
rosuvastatin 20 mg tablet 20 mg PO DAILY High cholesterol 12/20/21
amlodipine 10 mg tablet 10 mg PO QPM Blood Clot Prevention/Tx 09/17/23
buspirone 30 mg tablet 30 mg PO BID Mental Health/Anxiety 09/17/23
linaclotide 290 mcg capsule (Linzess) 290 mcg PO DAILY Gastrointestinal Issue 09/17/23
lisinopril 10 mg tablet 10 mg PO DAILY Blood Pressure 09/17/23
lorazepam 0.5 mg tablet 1 mg PO HS Mental Health/Anxiety 09/17/23
magnesium oxide 400 mg (241.3 mg magnesium) tablet 400 mg PO BID Electrolyte Repletion 09/17/23
olopatadine 0.2 % eye drops 1 drp BOTH EYES DAILYPRN PRN allergy symptoms 09/17/23
pantoprazole 40 mg tablet,delayed release 40 mg PO DAILY Gastrointestinal Issue 09/17/23
polyethylene glycol 3350 17 gram oral powder packet (Miralax) 17 g PO DAILY@1300 Constipation 09/17/23
urea 15 gram oral powder packet (Ure-Na) 1 packet PO Q48H@1200 Kidney Disease 09/17/23
Ib Kennedi 1 tab PO HS Gastrointestinal Issue 10/13/23
acetaminophen 325 mg tablet (Tylenol) 650 mg PO Q6HPRN PRN mild pain 10/15/23
Review of Systems
-
A 12 point ROS was completed and negative except as noted: Yes
Constitutional: Reports Other (as below)
Physical Exam
Vital Signs
Vital Signs
Temp Pulse Resp BP Pulse Ox
98.0 F 60 15 134/73 95
10/15/23 06:04 10/15/23 08:30 10/15/23 08:30 10/15/23 08:28 10/15/23 08:33
Physical Exam
General: Other (as below)
Laboratory Results
-
10/15/23 08:26
Impression/Plan
-
ROS
General: Denies fever chills night sweats unexpected weight loss
Neuro: Denies seizure shaking loss of consciousness dizziness vertigo
Psych: denies depression hallucinations confusion manic episodes
Endocrine: Denies polyuria polydipsia polyphagia heat/cold intolerance
HEENT: Denies blindness visual disturbances epistaxis, reports nasal congestion post-nasal drip
Pulmonary: left sided pleuritic chest pain intermittent cough sore throat
Cardiovascular: denies chest pain palpitations leg swelling
Hematology: denies signs symptoms of anemia easy bruising/bleeding
Gastrointestinal: denies nausea vomiting diarrhea constipation hematemesis hematochezia melena
Genito-Urinary: denies retention incontinence dysuria
Musculoskeletal: denies joint pain weakness
Dermatology: denies rash laceration bruising
Physical Exam
General: No pallor, cyanosis, or jaundice.
HEENT: Throat clear. PERRLA Normocephalic atraumatic
NECK: Supple. No JVD Carotid Bruits
RESPIRATORY: Lungs clear to auscultation. No crackles wheezes stridor
CVS: S1, S2 normal. RRR. No murmur, rub or gallop. Left sided palpable pacemaker site mild tenderness no significant erythema or discharge noted
ABDOMEN: Soft, non-tender. No distension. BS+/normal.
EXTREMITIES: No peripheral cyanosis or edema.
MAST MAKER: AOx3. conversant and coherent
IMPRESSION:
83M SSS recent ppm few days ago HTN HLD GERD BPH Gastroparesis IBS CAD p/w left sided chest pain pleuritic progressive past 24 h. VSS on room air. Labs unremarkable. EKG NSR. CXR noted small left pneumothorax. Discussed with IR no plans for
chest tube placement at this time, recommended oxygen supplementation and repeat imaging later in day. NPO for now in case of need for intervention. Could consider resuming diet if repeat CXR remains stable.
PLAN:
#SSS Recent ppm
#Chest X-ray appreciated new small left pneumothorax with associate increased pleuritic chest pain
Tele admit for now, if receives chest tube would transfer to IMU for closer monitorin
IR cardio evals requested
per discussion with IR, No plans for chest tube at this time
NPO for now pending repeat CXR noon
Received 1000 mg IV tylenol in ED with improvement in pain noted
Tylenol Q4HWA, patient refuses opiate pain meds due to concern exacerbation gastroparesis
#HTN
resume home antihypertensives with holding parameters
Amlodipine Lisinopril
#HLD
cont statin
#GERD
cont PPI
#Gastroparesis
#IBS
6 small meals a day when diet resumed
resume linzess when diet resumed
#CAD
Plavix on hold 7 days post ppm per Cardio
#Post-nasal drip
Claritin started
dvt ppx SCD
gi ppx PPI
Full Code as per patient and son at bedside
I spent a total of 75 minutes with the patient or on the floor. More than 50% of this time involved counseling and coordination of care.
[2023-10-15 09:10] LABS: ALT (SGPT) 24 U/L (0-50); AST (SGOT) 31 U/L (17-59); Albumin 4.3 g/dl (3.5-5.0); Alkaline Phosphatase 110 U/L (38-126); Blood Urea Nitrogen 27 mg/dl (9-20); Calcium 9.8 mg/dl (8.4-10.2); Carbon Dioxide 27 mmol/L (22-30); Chloride 97 mmol/L (98-107); Estimated Creatinine Clearance 49 ml/min; Glucose 92 mg/dl (70-99); Potassium 4.7 mmol/L (3.5-5.1); Sodium 134 mmol/L (135-145); Total Bilirubin 0.7 mg/dl (0.2-1.3); Total Protein 6.9 g/dl (6.3-8.2); eGFR > 60.00
[2023-10-15] MEDS: OFIRMEV 100 IV (09:11)
[2023-10-15] MEDS: CLARITIN 10 MG PO (11:17)
--- NOTE | 2023-10-15 11:38 | CON.CAR ---
Addendum entered and electronically signed by Cristopher Flores MD 10/15/23 14:51:
I saw and examined the patient.
The MANAGER TRAVEL or PA's note was reviewed and I agree with the note.
Comment: General: Well developed, well nourished in NAD.
Neck: Supple, no JVD, HJR, carotids +2 B/L, no bruits bilaterally.
Heart: Non displaced PMI, RRR, no murmurs, No S3, S4, no rubs.
Lungs: Scattered rhonchi
Left pacer dressing noted
Abdomen: Normal bowel sounds, soft, non-tender, non-distended.
Extremities: No clubbing, cyanosis or edema bilaterally.
Neuro: Grossly nonfocal, awake, alert and oriented x3.
Demarco has history of sick sinus syndrome status post pacer implant on 10/13/2023, PAD, coronary calcification by CTA, hypertension, hyperlipidemia. He has developed shoulder pain as well as left-sided chest discomfort. Discomfort was worse with
taking a deep breath. He presented to the ER and found to have a small left pneumothorax. This is being treated conservatively with repeat chest x-rays being done. His pain has improved. Discussed with patient and son at bedside. Cardiology
status stable at present
Original Note:
Consultation
Consultation Request
Date/Time Consultation Performed: 10/15/23
Requesting Provider: Dr. Newman
Performing Provider: Karin Mccoy PA-C for Dr. Flores
Reason for Consultation: CP post PPM
Medical History
-
Chief Complaint: CP
History of Present Illness:
Patient discharged 10/14/2023 after pacemaker placement. He reports post procedure he had some shoulder pain which was attributed to procedure itself and possible manipulation of left upper extremity during procedure. He reports he then went home
and last evening he had discomfort on the left side of his chest which woke him from sleep. He reports worse with taking a deep breath in. He took Tylenol and tried to go back to sleep, however it awoke him again at 5 AM and his son brought him in
for further evaluation. Chest x-ray with evidence of small left pneumothorax. He feels improved on supplemental O2 and with IV Tylenol. Denies issues with pacemaker site. Reports 1 mild episode of lightheadedness last evening upon standing.
Cardiology consulted for evaluation.
PMH:
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
Paroxysmal atrial tachycardia
Coronary calcification by CTA
HTN
Hyperlipidemia
Past Medical History
Past Medical History: Other (In HPI)
Past Surgical History: Tonsilectomy
Social History
Tobacco: Non-Smoker
Alcohol: Occasional
Drug: None
Personal:
Living: With Family
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
Family History
Family History: Cancer
Allergies / Home Medications
Allergy/AdvReac Type Severity Reaction Status Date / Time
aspirin Allergy Severe esopheageal Verified 10/15/23 06:03
pain
codeine Allergy Intermediate Nausea Verified 10/15/23 06:03
tramadol Allergy Intermediate Nausea Verified 10/15/23 06:03
�Medication �Instructions �Recorded �Confirmed �Type
clopidogrel 75 mg tablet 75 mg PO QPM Blood clot 12/20/21 10/15/23 History
prevention/tx
desloratadine 5 mg tablet 5 mg PO DAILYPRN PRN Allergies 12/20/21 10/15/23 History
rosuvastatin 20 mg tablet 20 mg PO DAILY High cholesterol 12/20/21 10/15/23 History
amlodipine 10 mg tablet 10 mg PO QPM Blood Clot 09/17/23 10/15/23 History
Prevention/Tx
buspirone 30 mg tablet 30 mg PO BID Mental Health/Anxiety 09/17/23 10/15/23 History
linaclotide 290 mcg capsule 290 mcg PO DAILY Gastrointestinal 09/17/23 10/15/23 History
(Linzess) Issue
lisinopril 10 mg tablet 10 mg PO DAILY Blood Pressure 09/17/23 10/15/23 History
lorazepam 0.5 mg tablet 1 mg PO HS Mental Health/Anxiety 09/17/23 10/15/23 History
magnesium oxide 400 mg (241.3 mg 400 mg PO BID Electrolyte Repletion 09/17/23 10/15/23 History
magnesium) tablet
olopatadine 0.2 % eye drops 1 drp BOTH EYES DAILYPRN PRN 09/17/23 10/15/23 History
allergy symptoms
pantoprazole 40 mg tablet,delayed 40 mg PO DAILY Gastrointestinal 09/17/23 10/15/23 History
release Issue
polyethylene glycol 3350 17 gram 17 g PO DAILY@1300 Constipation 09/17/23 10/15/23 History
oral powder packet (Miralax)
urea 15 gram oral powder packet 1 packet PO Q48H@1200 Kidney 09/17/23 10/15/23 History
(Ure-Na) Disease
Ib Kennedi 1 tab PO HS Gastrointestinal Issue 10/13/23 10/15/23 History
acetaminophen 325 mg tablet 650 mg PO Q6HPRN PRN mild pain 10/15/23 10/15/23 History
(Tylenol)
Review of Systems
-
History Source: Patient and Family
All other systems: Negative unless noted
Physical Exam
Vital Signs
Temp Pulse Resp BP Pulse Ox
98.0 F 60 15 134/73 95
10/15/23 06:04 10/15/23 08:30 10/15/23 08:30 10/15/23 08:28 10/15/23 08:33
Lab Results
10/15/23 08:26
10/15/23 08:26
Physical Exam
General: No Apparent Distress, Comfortable and Other (on supp O2)
HEENT: Normocephalic, Anicteric and Moist Mucous Membranes
Respiratory: Clear and Non Labored Respirations
Cardiac: S1/S2 and Regular Rhythm
GI: Soft, Non Tender, Non Distended and Normal Bowel Sounds
Musculoskeletal: No Clubbing, No Cyanosis and No Edema
Skin: Warm, Dry and Other (PPM site without edema, erythema, c/d/i. )
Neuro: AO x 3
Impression / Plan
-
Primary Bird Keeper: Dr. Stephenson
Primary EP: Dr. Holly
Assessment:
Presentation with CP
Small L PTX by CXR 10/15/23
Post operative pain
SSS/Symptomatic bradycardia status post DC PPM Medtronic 10/13/23
HTN
HLD
NSVT
PAT
chronic mild hyponatremia
GERD
BPH
Gastroparesis
CAD by coronary calcium score
b/l inguinal hernia for surgery 11/28
ECHO 2015: EF normal, trace AR
Plan:
-Patient presents with chest discomfort and shoulder discomfort in the setting of recent pacemaker placement 10/13/2023
-Chest x-ray reveals small left pneumothorax. Continue supportive care and supplemental oxygen. For repeat chest x-ray at noon to reassess. At this time does not appear to require chest tube placement
-Continue pain management
-in SR. Pacemaker appears to be appropriately functioning
-Left chest site soft, without erythema or edema. Some oskar-incisional bruising noted, however no firm areas
-Hemoglobin stable at 13.5
-Dr. Stephenson primary junior data analyst
-Discussed with patient and son at bedside. Discussed with ER nursing
Data Reviewed
-
EKG: Tracing Personally Visualized and interpreted
Radiology: Report Reviewed by me
Medical Tests (Nuc Med, Echo etc): Report Reviewed by me
Labs: Labs Reviewed by me
Old Records: Reviewed
--- NOTE | 2023-10-15 12:09 | W.PN.UPDATE ---
Update Note
Progress Note Update
Saw patient and son at bedside. Developed inspiratory pain last evening/overnight and came to ER this am. Small apical pneumo on today CXR (no PTX seen on post implant 10/12 CXR). Symptoms have abated on high flow oxygen and due for repeat CXR in IR
early afternoon. Currently no chest tube requirement but will see what follow up CXR shows. Also discussed if he redevelops symptoms as outpt to come back to hospital. Will see his course but thankfully improving. I took time to answer all
questions.
[2023-10-15] MEDS: PROTONIX 40 MG PO (13:29)
[2023-10-15] MEDS: LINZESS 290 MCG PO (13:29)
[2023-10-15] MEDS: TYLENOL PO (13:32)
[2023-10-15] MEDS: MAGNESIUM OXIDE 500 MG PO (16:41)
[2023-10-15] MEDS: MIRALAX 17 GRAMS PO (16:41)
[2023-10-15] MEDS: TYLENOL 650 MG PO ×2 (16:41→20:21)
--- NOTE | 2023-10-15 16:43 | CM ---
Met with patient and his son at bedside; initial assessment completed
Pharmacy verified: [facility] @ [id number] [facility]
Patient and live in Bi-Level home; 1st floor set up; 7 steps to enter; 8 steps between levels of home; railings present; full bath has stall shower and grab bar
PLOF: retired [employer]; reported he is independent with ambulation, stairs and ADLs; Drives, Walks a couple miles per day. Patient is primary caregiver for his who has Dementia
Son staying with parents until stable; patient's daughter lives nearby
NO SNF or Home Health utilization history
Son will transport home
Plan: discharge to home when medically stable; if home health/VN is recommended, patient is agreeable and agency preference is [facility]
[2023-10-15] MEDS: NORVASC 10 MG PO (17:51)
[2023-10-15] MEDS: BUSPAR 30 MG PO (20:21)
[2023-10-15] MEDS: ATIVAN 1 MG PO (21:41)
[2023-10-16] VITALS (9 sets, daily range): BP systolic 103–150; BP diastolic 54–83; PULSE 61; O2SAT 96
[2023-10-16] MEDS: LINZESS 290 MCG PO (05:51)
[2023-10-16] MEDS: TYLENOL 650 MG PO ×3 (05:51→21:05)
--- NOTE | 2023-10-16 07:08 | W.PN.HOSP.TC ---
Today's Communication/Plan
-
cont oxygen supplementation 2L
monitor respiratory status
pain control
repeat CXR in AM
Assessment / Plan
Assessment / Plan
Physical Exam
General: No pallor, cyanosis, or jaundice.
HEENT: Throat clear. PERRLA Normocephalic atraumatic
NECK: Supple. No JVD Carotid Bruits
RESPIRATORY: Lungs clear to auscultation. No crackles wheezes stridor
CVS: S1, S2 normal. RRR. No murmur, rub or gallop. Left sided palpable pacemaker site mild tenderness no significant erythema or discharge noted
ABDOMEN: Soft, non-tender. No distension. BS+/normal.
EXTREMITIES: No peripheral cyanosis or edema.
HYDRAULIC MINER: AOx3. conversant and coherent
IMPRESSION:
83M SSS recent ppm few days ago HTN HLD GERD BPH Gastroparesis IBS CAD p/w left sided chest pain pleuritic progressive past 24 h. VSS on room air. Labs unremarkable. EKG NSR. CXR noted small left pneumothorax.
PLAN:
#SSS Recent ppm
#Chest X-ray appreciated new small left pneumothorax with associate increased pleuritic chest pain
Tele admit
IR cardio evals appreciated
per discussion with IR, No plans for chest tube at this time
repeat Chest X-rays note stability/improvement in pneumothorax
Tylenol Q4HWA, patient refuses opiate pain meds due to concern exacerbation gastroparesis
pain since improved Tylenol switched to prn.
#HTN
resume home antihypertensives with holding parameters
Amlodipine Lisinopril
#HLD
cont statin
#GERD
cont PPI
#Gastroparesis
#IBS
6 small meals a day
cont home linzess
#CAD
Plavix on hold 7 days post ppm per Cardio
#Post-nasal drip
Claritin started, continue
PT/OT appreciated Home Health
dvt ppx SCD
gi ppx PPI
Full Code
I spent a total of 50 minutes with the patient or on the floor. More than 50% of this time involved counseling and coordination of care.
Anticipated Discharge: Within 24 hours
Subjective/Interval History
-
Date of Service: October 16, 2023
Seen and examined at bedside in no acute distress sitting up comfortably in chair. Reports overall feeling well. Pleuritic chest pain since improved. Patient's Shana present during evaluation.
Objective Data
-
Labs:
Laboratory Results
10/16/23
05:58
WBC Pending
Hgb Pending
Hct Pending
Plt Count Pending
Sodium Pending
Potassium Pending
Chloride Pending
Carbon Dioxide Pending
BUN Pending
Creatinine Pending
Glucose Pending
Calcium Pending
Vital Signs:
Vital Signs
Temp Pulse Resp BP Pulse Ox
98.0 F 61 18 145/83 98
10/16/23 03:07 10/16/23 03:07 10/16/23 03:07 10/16/23 03:07 10/16/23 03:07
I&O
10/15/23 10/16/23 10/17/23
06:59 06:59 06:59
Intake Total 960 / 960
Output Total 1125 / 1125
Balance -165 / -165
[2023-10-16 07:30] LABS: Hematocrit 35.2 % (39.0-52.0); Hemoglobin 12.6 g/dL (13.0-18.0); Mean Corp Hgb Conc. 35.8 g/dL (33.0-37.0); Mean Corpuscular Hgb 35.2 pg (27.0-31.0); Mean Corpuscular Volume 98.3 fL (80.0-94.0); Mean Platelet Volume 10.4 fL (7.4-10.4); Platelet Count 195 10^3/uL (130-400); Red Blood Cell Count 3.58 10^6/uL (4.70-6.10); Red Cell Dist. Width 12.6 % (11.5-14.5)
[2023-10-16 08:06] LABS: Blood Urea Nitrogen 21 mg/dl (9-20); Calcium 9.6 mg/dl (8.4-10.2); Carbon Dioxide 25 mmol/L (22-30); Chloride 97 mmol/L (98-107); Estimated Creatinine Clearance 49 ml/min; Glucose 84 mg/dl (70-99); Potassium 4.7 mmol/L (3.5-5.1); Sodium 135 mmol/L (135-145); eGFR > 60.00
[2023-10-16] MEDS: MAGNESIUM OXIDE 500 MG PO (08:08)
[2023-10-16] MEDS: CRESTOR 20 MG PO (08:08)
[2023-10-16] MEDS: ZESTRIL 10 MG PO (08:08)
[2023-10-16] MEDS: CLARITIN 10 MG PO (08:08)
[2023-10-16] MEDS: PROTONIX 40 MG PO (08:08)
[2023-10-16] MEDS: BUSPAR 30 MG PO ×2 (08:09→21:03)
--- NOTE | 2023-10-16 11:50 | W.PN.CARDCBS ---
Addendum entered and electronically signed by Cristopher Flores MD 10/16/23 12:49:
I saw and examined the patient.
The LANDSCAPE SUPERVISOR or PA's note was reviewed and I agree with the note.
Comment: General: Well developed, well nourished in NAD.
Neck: Supple, no JVD, HJR, carotids +2 B/L, no bruits bilaterally.
Heart: Non displaced PMI, RRR, no murmurs, No S3, S4, no rubs.
Lungs: Clear to auscultation bilaterally, no wheeze, rhonchi, rubs bilaterally,
normal expiratory phase.
Abdomen: Normal bowel sounds, soft, non-tender, non-distended.
Extremities: No clubbing, cyanosis or edema bilaterally.
Neuro: Grossly nonfocal, awake, alert and oriented x3.
Chest x-ray with improving pneumothorax. Stable cardiology status. Discussed with patient and son in detail
Original Note:
Today's Communication / Plan
-
continue mgmt of small PTX
wean supp O2
in sinus/apaced rhythm
OP cardiac follow up arranged
Impression / Plan
-
Primary Meat Stock Clerk: Dr. Stephenson
Primary EP: Dr. Holly
Assessment:
Presentation with CP
Small L PTX by CXR 10/15/23
Post operative pain
SSS/Symptomatic bradycardia status post DC PPM Medtronic 10/13/23
HTN
HLD
NSVT
PAT
chronic mild hyponatremia
GERD
BPH
Gastroparesis
CAD by coronary calcium score
b/l inguinal hernia for surgery 11/28
ECHO 2015: EF normal, trace AR
Plan:
-Continue management of small left pneumothorax per primary service, decreased in size compared to prior. Wean supplemental oxygen as able, currently on 2L NC
-in sinus/apaced rhythm. Pacemaker appears to be appropriately functioning
-Hemoglobin 12.6
-for device check 10/19. Dr. Stephenson primary store host, has follow up in November
Progress Note - Meat Stock Clerk
Subjective
Date of Service: October 16, 2023
weaning supp O2. no issues overnight noted
Objective
Labs:
10/16/23 05:58
10/16/23 05:58
Labs
Hgb 12.6 g/dL (13.0-18.0) L 10/16/23 05:58
Hct 35.2 % (39.0-52.0) L 10/16/23 05:58
Plt Count 195 10^3/uL (130-400) 10/16/23 05:58
Sodium 135 mmol/L (135-145) 10/16/23 05:58
Potassium 4.7 mmol/L (3.5-5.1) 10/16/23 05:58
BUN 21 mg/dl (9-20) H 10/16/23 05:58
Creatinine 1.0 mg/dL (0.7-1.3) 10/16/23 05:58
Glucose 84 mg/dl (70-99) 10/16/23 05:58
Vital Signs and I&O:
Vital Signs
Temp Pulse Resp BP Pulse Ox
97.8 F 62 18 103/56 97
10/16/23 11:00 10/16/23 11:00 10/16/23 11:00 10/16/23 11:00 10/16/23 11:00
Vital Signs
Temp Pulse Resp BP Pulse Ox
97.8 F 62 18 103/56 97
10/16/23 11:00 10/16/23 11:00 10/16/23 11:00 10/16/23 11:00 10/16/23 11:00
Intake & Output
10/14/23 10/15/23 10/16/23 10/17/23
07:59 07:59 07:59 07:59
Intake Total 960 / 960
Output Total 1125 / 1125
Balance -165 / -165
[2023-10-16] MEDS: TYLENOL PO ×4 (14:48→21:16)
[2023-10-16] MEDS: MIRALAX 17 GRAMS PO (15:06)
[2023-10-16] MEDS: URE-NA PO (15:31)
[2023-10-16] MEDS: URE-NA 15 GRAMS PO (16:55)
[2023-10-16] MEDS: NON-FORMULARY ITEM 1 UNIT PO (16:55)
[2023-10-16] MEDS: NORVASC 10 MG PO (17:41)
[2023-10-16] MEDS: ATIVAN 1 MG PO (21:03)
[2023-10-16] MEDS: NON-FORMULARY ITEM 1 TABLET PO (21:04)
[2023-10-17 03:00] VITALS: BP 121/63
[2023-10-17] MEDS: TYLENOL 650 MG PO (05:28)
[2023-10-17] MEDS: LINZESS 290 MCG PO (06:41)
[2023-10-17 07:00] VITALS: BP 100/70
--- NOTE | 2023-10-17 07:19 | W.PN.HOSP.TC ---
Today's Communication/Plan
-
discharge
Assessment / Plan
Assessment / Plan
Physical Exam
General: No pallor, cyanosis, or jaundice.
HEENT: Throat clear. PERRLA Normocephalic atraumatic
NECK: Supple. No JVD Carotid Bruits
RESPIRATORY: Lungs clear to auscultation. No crackles wheezes stridor
CVS: S1, S2 normal. RRR. No murmur, rub or gallop. Left sided palpable pacemaker site mild tenderness no significant erythema or discharge noted
ABDOMEN: Soft, non-tender. No distension. BS+/normal.
EXTREMITIES: No peripheral cyanosis or edema.
BANANA CARRIER: AOx3. conversant and coherent
IMPRESSION:
83M SSS recent ppm few days ago HTN HLD GERD BPH Gastroparesis IBS CAD p/w left sided chest pain pleuritic progressive past 24 h. VSS on room air. Labs unremarkable. EKG NSR. CXR noted small left pneumothorax.
PLAN:
#SSS Recent ppm
#Chest X-ray appreciated new small left pneumothorax with associate increased pleuritic chest pain
Tele admit
IR cardio evals appreciated
per discussion with IR, No plans for chest tube at this time
repeat Chest X-rays note stability/improvement in pneumothorax
Tylenol Q4HWA, patient refuses opiate pain meds due to concern exacerbation gastroparesis
pain since improved Tylenol switched to prn.
Home Oxygen assessment appreciated no needs.
Serial Chest X-rays notes stable improving small left pneumothorax.
Cardiology eval appreciated stable cardiac status
#HTN
resume home antihypertensives with holding parameters
Amlodipine Lisinopril
#HLD
cont statin
#GERD
cont PPI
#Gastroparesis
#IBS
6 small meals a day
cont home linzess
#CAD
Plavix on hold 7 days post ppm per Cardio
#Post-nasal drip
Claritin
PT/OT appreciated Home Health
dvt ppx SCD
gi ppx PPI
Full Code
Medically stable for discharge home with home services and outpatient follow up recommendations.
discussed with patient, patient's son Dedrick, patient's Shana, nurse, and Cardiology
Total Time Preparing Discharge ___40____ minutes including examination of the patient, summary of the hospital stay, instructions for continuing care to all relevant caregivers; and preparation of discharge records, prescriptions, and referral
forms if necessary.
Anticipated Discharge: Today
Subjective/Interval History
-
Date of Service: October 17, 2023
Seen and examined at bedside in no acute distress sitting up comfortably in chair. Reports feeling well. Pain improved. Ambulated with nurse, no oxygen need noted on home oxygen assessment. Denies new acute issues at this time. Eager to go home.
Objective Data
-
Labs:
Laboratory Results
10/17/23
06:00
WBC Pending
Hgb Pending
Hct Pending
Plt Count Pending
Sodium Pending
Potassium Pending
Chloride Pending
Carbon Dioxide Pending
BUN Pending
Creatinine Pending
Glucose Pending
Calcium Pending
Vital Signs:
Vital Signs
Temp Pulse Resp BP Pulse Ox
97.7 F 64 16 121/63 98
10/17/23 03:00 10/17/23 03:00 10/17/23 03:00 10/17/23 03:00 10/17/23 03:00
I&O
10/16/23 10/17/23 10/18/23
06:59 06:59 06:59
Intake Total 960 / 960 2360 / 2360
Output Total 1125 / 1125
Balance -165 / -165 2360 / 2360
[2023-10-17 07:56] LABS: Hematocrit 37.2 % (39.0-52.0); Hemoglobin 13.1 g/dL (13.0-18.0); Mean Corp Hgb Conc. 35.2 g/dL (33.0-37.0); Mean Corpuscular Hgb 34.8 pg (27.0-31.0); Mean Corpuscular Volume 98.9 fL (80.0-94.0); Platelet Count 204 10^3/uL (130-400); Red Blood Cell Count 3.76 10^6/uL (4.70-6.10); Red Cell Dist. Width 12.7 % (11.5-14.5); White Blood Cell Count 5.9 10^3/uL (4.8-10.8)
--- NOTE | 2023-10-17 08:00 | PTCARENOTE ---
4 beat run of vtach overnight. Dr. Lee notified. Strip in chart
[2023-10-17 08:34] LABS: Blood Urea Nitrogen 31 mg/dl (9-20); Calcium 9.9 mg/dl (8.4-10.2); Carbon Dioxide 26 mmol/L (22-30); Chloride 97 mmol/L (98-107); Estimated Creatinine Clearance 54 ml/min; Glucose 97 mg/dl (70-99); Potassium 4.6 mmol/L (3.5-5.1); Sodium 136 mmol/L (135-145); eGFR > 60.00
[2023-10-17] MEDS: MAGNESIUM OXIDE 500 MG PO (09:36)
[2023-10-17] MEDS: PROTONIX 40 MG PO (09:36)
[2023-10-17] MEDS: BUSPAR 30 MG PO (09:36)
[2023-10-17 10:30] VITALS: BP 110/55
[2023-10-17] MEDS: ZESTRIL PO (10:30)
[2023-10-17] MEDS: CRESTOR 20 MG PO (10:31)
[2023-10-17] MEDS: CLARITIN 10 MG PO (10:31)
--- NOTE | 2023-10-17 11:16 | W.PN.CARDCBS ---
Today's Communication / Plan
-
Stable cardiology status
Impression / Plan
-
Primary Local Delivery Driver: Dr. Stephenson
Primary EP: Dr. Holly
Assessment:
Presentation with CP
Small L PTX by CXR 10/15/23
Post operative pain
SSS/Symptomatic bradycardia status post DC PPM Medtronic 10/13/23
HTN
HLD
NSVT
PAT
chronic mild hyponatremia
GERD
BPH
Gastroparesis
CAD by coronary calcium score
b/l inguinal hernia for surgery 11/28
ECHO 2015: EF normal, trace AR
Plan:
He continues to do well.
Discussed with primary service and plan is to repeat chest x-ray and discussed with IR
Stable cardiology status
Etiology of left shoulder pain is likely musculoskeletal not related to pacer implant
Outpatient device check 10/19. Dr. Stephenson primary toys inspector, has follow up in November
Progress Note - Local Delivery Driver
Subjective
Date of Service: October 17, 2023
No complaints
Objective
Labs:
10/17/23 07:33
10/17/23 07:33
Labs
Hgb 13.1 g/dL (13.0-18.0) 10/17/23 07:33
Hct 37.2 % (39.0-52.0) L 10/17/23 07:33
Plt Count 204 10^3/uL (130-400) 10/17/23 07:33
Sodium 136 mmol/L (135-145) 10/17/23 07:33
Potassium 4.6 mmol/L (3.5-5.1) 10/17/23 07:33
BUN 31 mg/dl (9-20) H 10/17/23 07:33
Creatinine 0.9 mg/dL (0.7-1.3) 10/17/23 07:33
Glucose 97 mg/dl (70-99) 10/17/23 07:33
Vital Signs and I&O:
Vital Signs
Temp Pulse Resp BP Pulse Ox
97.4 F 62 18 110/55 98
10/17/23 07:00 10/17/23 07:00 10/17/23 07:00 10/17/23 10:30 10/17/23 07:00
Vital Signs
Temp Pulse Resp BP Pulse Ox
97.4 F 62 18 110/55 98
10/17/23 07:00 10/17/23 07:00 10/17/23 07:00 10/17/23 10:30 10/17/23 07:00
Intake & Output
10/15/23 10/16/23 10/17/23 10/18/23
06:59 06:59 06:59 06:59
Intake Total 960 / 960 2360 / 2360
Output Total 1125 / 1125
Balance -165 / -165 2360 / 2360
Physical Exam
Physical Exam
General: Well developed, well nourished in NAD.
Neck: Supple, no JVD, HJR, carotids +2 B/L, no bruits bilaterally.
Heart: Non displaced PMI, RRR, no murmurs, No S3, S4, no rubs.
Lungs: Clear to auscultation bilaterally, no wheeze, rhonchi, rubs bilaterally,
normal expiratory phase.
Extremities: No clubbing, cyanosis or edema bilaterally.
Neuro: Grossly nonfocal, awake, alert and oriented x3.
--- NOTE | 2023-10-17 11:48 | CM ---
Addendum entered by Doreen Huertas 10/17/23 16:02:
IMM completed.
Addendum entered by Doreen Huertas 10/17/23 15:38:
[facility]
fax# [phone].
Original Note:
Patient seen bedside.
and son in room.
PT/OT recommending home with home care.
Options reviewed.
Patient had [facility] in the past (2021), would like [facility].
Referral placed via [facility].
Plan: home with VN.
[2023-10-17] MEDS: MIRALAX 17 GRAMS PO (12:48)
[2023-10-17 15:00] VITALS: BP 111/65
--- NOTE | 2023-10-17 16:37 | W.DCSUMMARY ---
Discharge Summary
Discharge Data
Date of Admission: 10/15/23
Date of Discharge: 10/17/23
-
Pending Results: No
Discharge Plan
-
Patient Disposition: Home with Home Care
Discharge Diagnosis/Procedures: Small left pneumothorax due to recent pacemaker placement (stable, resolving)
Sick Sinus Syndrome Status Post Pacemaker Placement
Hypertension
Hyperlipidemia
GERD
Gastroparesis
Coronary Artery Disease
Condition: Fair
Diet: Low Cholesterol
Activity: As tolerated
Driving Restrictions: Not until seen by your Dr
Bathing Restrictions: None
Others Tests: Repeat Chest X-ray in 1 week of discharge. Results to be forwarded to your primary care provider and to cardiology. Script has been provided to facilitate.
Other Services: PT and OT
Activity Restrictions/Additional Instructions:
Please follow up with primary care provider in 1 week of discharge and keep your appointments with Cardiology.
Referrals:
[facility]- [facility] [Provider Group] - 10/20/23 1:40 pm
Marley Stephenson MD [Active] - 11/22/23 2:40 pm
Daniel Jimenez MD [Family Provider] - in one week
Additional Discharge Medication Instructions: Hold Plavix for 7 days post device/pacemaker placement
Prescriptions:
Continued
clopidogrel 75 mg Tablet
75 mg PO QPM
Rx Instructions:
on hold since surgery
desloratadine 5 mg Tablet
5 mg PO DAILYPRN PRN (Reason: Allergies)
rosuvastatin 20 mg Tablet
20 mg PO DAILY
polyethylene glycol 3350 [Miralax] 17 gram Powder In Packet
17 g PO DAILY@1300
magnesium oxide 400 mg (241.3 mg magnesium) tablet
400 mg PO BID
amlodipine 10 mg tablet
10 mg PO QPM
pantoprazole 40 mg tablet,delayed release (DR/EC)
40 mg PO DAILY
buspirone 30 mg tablet
30 mg PO BID
lisinopril 10 mg tablet
10 mg PO DAILY
Linzess 290 mcg capsule
290 mcg PO DAILY
Ure-Na 15 gram Powder In Packet
1 packet PO Q48H@1200
lorazepam 0.5 mg tablet
1 mg PO HS
olopatadine 0.2 % Drops
1 drp BOTH EYES DAILYPRN PRN (Reason: allergy symptoms)
Ib Kennedi
1 tab PO HS
acetaminophen [Tylenol] 325 mg Tablet
650 mg PO Q6HPRN PRN (Reason: mild pain)
Discharge Orders:
Discharge Patient (As Directed); Ordered 10/17/23
Ordered By: Kelly Salazar
Discharge Date and Time
Print Language: SYRIAC
--- NOTE | 2023-10-18 10:39 | CM ---
Patient accepted by [facility].
== END 2023-10-17 17:07 | disposition home health service (06) | DRG 200 ==
LOC: 4 WEST ACU 10:51
PROVIDERS: Nurse Practitioner; ADMITTING PHYSICIAN Internal Medicine; CONSULT PHYSICIAN Internal Medicine Cardiovascular Disease; EMERGENCY PHYSICIAN Student in an Organized Health Care Education/Training Program; FAMILY PHYSICIAN Internal Medicine
DX: J95.811 Postprocedural pneumothorax (principal); E87.1 Hypo-osmolality and hyponatremia; I47.19 Other supraventricular tachycardia; I10 Essential (primary) hypertension; I49.5 Sick sinus syndrome; Z95.0 Presence of cardiac pacemaker; E78.00 Pure hypercholesterolemia, unspecified; F41.9 Anxiety disorder, unspecified; I25.10 Atherosclerotic heart disease of native coronary artery without angina pectoris; K21.9 Gastro-esophageal reflux disease without esophagitis; K31.84 Gastroparesis; K58.9 Irritable bowel syndrome, unspecified; N40.0 Benign prostatic hyperplasia without lower urinary tract symptoms; R09.82 Postnasal drip; Z79.899 Other long term (current) drug therapy; Z86.79 Personal history of other diseases of the circulatory system; Z87.19 Personal history of other diseases of the digestive system; Z88.6 Allergy status to analgesic agent
CPT/HCPCS: 33208; 71045; 71046; 80048; 80053; 83735; 85025; 85027; 93005; 97162; 97166; 99285; C1785; C1892; C1898

== ENCOUNTER → 2023-10-25 08:07 | Outpatient (REF) | payer MEDICARE, BC, SELFPAY | LOC: RAD 08:07 | PROVIDERS: ATTENDING PHYSICIAN Internal Medicine; FAMILY PHYSICIAN Internal Medicine | DX: J95.811 Postprocedural pneumothorax (principal) | CPT/HCPCS: 71046 ==

== ENCOUNTER → 2023-12-21 13:43 | Outpatient (REF) | payer MEDICARE, BC, SELFPAY | LOC: HWRAD 13:43 | PROVIDERS: ATTENDING PHYSICIAN Internal Medicine Gastroenterology; FAMILY PHYSICIAN Internal Medicine | DX: K58.1 Irritable bowel syndrome with constipation (principal) | CPT/HCPCS: 74018 ==

== ENCOUNTER 2024-01-01 15:14 | Inpatient (IN) | payer MEDICARE, BC, SELFPAY ==
[2024-01-01 08:29] VITALS: BP 134/87; BMI 21.3
--- NOTE | 2024-01-01 08:46 | ED.GENMED ---
History of Present Illness
General
Chief Complaint: Bowel Problem
Source: patient
Exam Limitations: none
Time Seen by Provider: 01/01/24 08:33
Nursing documentation reviewed up to this point in time: agreed with
History of Present Illness
History of Present Illness:
83-year-old male with a past medical history as noted presents to the emergency room for evaluation of constipation. Patient reports that he has constipated for the past 5 days; this is an acute on chronic issue. He normally takes magnesium oxide,
MiraLAX, Linzess and has been following with GI for chronic constipation/IBS. He says that has been compliant with his medications but still has only been passing very small argelia of stool and occasional liquid stool over the past 5 days. He
says he took GoLytely yesterday x 2 bottles and still has not had a bowel movement, called his GI doctor who recommended he come to the emergency room. He says he has some generalized abdominal discomfort and mild nausea but no vomiting. No other
complaints. Denies prior surgical history.
Past History
Past History
ED Past Medical History: GERD, HTN, Hypercholesterolemia, Psychiatric (Anxiety) and Other (Constipation, irritable bowel)
ED Past Surgical History: Tonsilectomy
Social History
Tobacco: Non-smoker
Alcohol: None
Personal:
Living: with family
Employment: Retired
Family History
Family History: Other (Noncontributory)
Review of Systems
Review of Systems
All Other Systems: ROS reviewed and negative except as documented in HPI and ROS
Constitutional: Denies fever
Respiratory: Denies trouble breathing
Cardiac: Denies chest pain
ABD/GI: Reports abdominal pain, nausea and constipated; Denies vomiting or diarrhea
: Denies flank pain
Musculoskeletal: Denies neck pain or back pain
Neurological: Denies headache
Phy Exam
Physical Exam
Physical Exam:
General: Awake, alert; no acute distress
Head: Normocephalic, atraumatic
Eyes: Conjunctiva normal
Throat: Airway intact, handling secretions
Neck: Trachea midline, supple without meningismus
Lungs: Breathing comfortably no distress
Heart: Regular rate
Abd: Soft, non distended, nontender
Rectal: Rectal vault is empty with no stool or impaction
Extremities: Warm and well-perfused
Scores
Heart Failure Risk
Heart Failure Risk Score: Not Applicable
Heart Score for Chest Pain Patients
STEMI patient?: Not applicable
Withdrawal Assessment of Alcohol
Withdrawal Assessment Completed?: Not applicable
Course
Orders/Labs/Results
Orders:
Orders
01/01/24 08:34
CR Obstruct Series W/pa Chest Urgent
Comment:
Reason For Exam: constipation
01/01/24 08:51
Complete Blood Count/With Diff Urgent
Comprehensive Metabolic Panel Urgent
Magnesium Urgent
01/01/24 09:55
Enema- Treatment ONCE
Type: Milk of Molasses
01/01/24 12:56
CT Abd/pel W Iv And Oral Contr Urgent
Comment:
Reason For Exam: severe constipation
Iohexol [Omnipaque] See Protocol PO NOW STA
Abnormal Lab Results
01/01/24
08:51
RBC 3.83 L 10^6/uL
(4.70-6.10)
Hct 38.5 L %
(39.0-52.0)
MCV 100.5 H fL
(80.0-94.0)
MCH 33.9 H pg
(27.0-31.0)
Absolute Lymphs (auto) 0.9 L 10^3/uL
(1.2-3.4)
Lymphocytes % 17.5 L %
(20.5-51.1)
Chloride 95 L mmol/L
(98-107)
BUN 24 H mg/dl
(10-28)
01/01/24 08:51
01/01/24 08:51
Vital Signs
Initial and Last Documented VS:
Initial Vital Signs
Temp Pulse Resp BP Pulse Ox
36.4 C 79 20 134/87 99
01/01/24 08:29 01/01/24 08:29 01/01/24 08:29 01/01/24 08:29 01/01/24 08:29
Last Documented Vital Signs
Temp Pulse Resp BP Pulse Ox
36.4 C 64 17 149/88 98
01/01/24 08:29 01/01/24 12:54 01/01/24 12:54 01/01/24 12:54 01/01/24 12:54
MDM/Problems Addressed
Differential Diagnosis Includes:
Constipation, bowel obstruction, fecal impaction (ruled out on exam)
MDM/Problems Addressed:
83-year-old male presents to the emergency room for evaluation of constipation acute on chronic issue over the past 4-5 days. Still passing gas. Mild nausea no vomiting. Mild generalized abdominal discomfort. Vitals normal. Exam as above. Will
check obstruction series to evaluate for bowel obstruction. Check electrolytes�she has a history of electrolyte derangements in the past, rule out hypocalcemia, etc. if x-ray negative for obstruction, trial enema.
Labs reviewed: CBC unremarkable, CMP no clinically significant abnormalities. Obstruction series shows severe constipation but no obstruction. Will trial enema and reassess.
No result after initial enema. Repeat enema and reassess.
Enema x 2 with no bowel movement. Patient still having abdominal fullness/discomfort and has not been able to pass stool. He has been on aggressive bowel regimen at home, took oral bowel prep with GoLytely and now multiple enemas without response.
Will admit for aggressive bowel regiment in the hospital for severe constipation. Discussed case with hospitalist. Question of ileus on x-ray�check abdominal CT.
*Radiology
Radiology exam reviewed: preliminary read by ED provider and radiology read reviewed
*Pulse Oximetry
Patient hypoxic: no
*Critical Care Note
Total Time (30-74mins, 75-104mins- exclusive of procedures): Not Applicable
Data Reviewed
Review of Other/Old Records Reveals: Labs
Source: patient and records
Patient Management
Discussion with other providers: Hospitalist (Discussed with hospitalist)
Escalation/DeEscalation of care consider admission/obs:
Admission indicated
ED Attending Note
-
Portions of this chart may have been created with voice recognition software.� Occasional wrong word or��sound alike� substitutions may have occurred due to the inherent limitations of voice recognition software.
Discharge Plan
Departure
Patient Disposition: Admit
Date of Disposition: 01/01/24
Time of Disposition: 12:59
Admit to doctor: Ney
Presentation/result/management discussed w/ accepting MD/DO: Hospitalist
Discharge Problem:
Acute constipation
Prescriptions:
No Action
clopidogrel 75 mg Tablet
75 mg PO QPM
Rx Instructions:
on hold since surgery
desloratadine 5 mg Tablet
5 mg PO DAILYPRN PRN (Reason: Allergies)
rosuvastatin 20 mg Tablet
20 mg PO DAILY
polyethylene glycol 3350 [Miralax] 17 gram Powder In Packet
17 g PO DAILY@1300
magnesium oxide 400 mg (241.3 mg magnesium) tablet
400 mg PO BID
amlodipine 10 mg tablet
10 mg PO QPM
pantoprazole 40 mg tablet,delayed release (DR/EC)
40 mg PO DAILY
buspirone 30 mg tablet
30 mg PO BID
lisinopril 10 mg tablet
10 mg PO DAILY
Linzess 290 mcg capsule
290 mcg PO DAILY
Ure-Na 15 gram Powder In Packet
1 packet PO Q48H@1200
lorazepam 0.5 mg tablet
1 mg PO HS
olopatadine 0.2 % Drops
1 drp BOTH EYES DAILYPRN PRN (Reason: allergy symptoms)
Ib Kennedi
1 tab PO HS
acetaminophen [Tylenol] 325 mg Tablet
650 mg PO Q6HPRN PRN (Reason: mild pain)
Referrals:
Daniel Jimenez MD [Family Provider] -
Interventions
Interventions:
*Risk Screen - Suicide Last Done: 01/01/24 09:55
*General Assessment Last Done: 01/01/24 09:55
*Neglect/Abuse Screening Last Done: 01/01/24 09:55
ED- Fall Risk Assessment Last Done: 01/01/24 09:55
*ED COVID-19 Vaccine History Last Done: 01/01/24 11:39
VF-Nrunna-Udrgggmqvz Assessment Last Done: 01/01/24 09:55
Discharge Date and Time
Print Language: BELARUSIAN
[2024-01-01 09:03] LABS: % Basophils 0.2 % (0-2); % Eosinophils 0.9 % (0-6); % Immature Granulocytes 0.2 % (0-0.5); % Lymphocytes 17.5 % (20.5-51.1); % Monocytes 8.3 % (1.7-9.3); % Neutrophils 72.9 % (42.2-75.2); Absolute Eosinophils 0.1 10^3/uL (0-0.7); Absolute Lymphocytes 0.9 10^3/uL (1.2-3.4); Absolute Monocytes 0.4 10^3/uL (0.1-0.6); Absolute Neutrophils 3.9 10^3/uL (1.4-6.5); Hematocrit 38.5 % (39.0-52.0); Mean Corp Hgb Conc. 33.8 g/dL (33.0-37.0); Mean Corpuscular Hgb 33.9 pg (27.0-31.0); Mean Corpuscular Volume 100.5 fL (80.0-94.0); Mean Platelet Volume 9.9 fL (7.4-10.4); Nucleated Red Blood Cells % 0 % (-); Platelet Count 197 10^3/uL (130-400); Red Blood Cell Count 3.83 10^6/uL (4.70-6.10); Red Cell Dist. Width 12.6 % (11.5-14.5); White Blood Cell Count 5.3 10^3/uL (4.8-10.8)
[2024-01-01 09:14] LABS: ALT (SGPT) 30 U/L (0-50); AST (SGOT) 31 U/L (17-59); Albumin 4.4 g/dl (3.5-5.0); Alkaline Phosphatase 86 U/L (38-126); Blood Urea Nitrogen 24 mg/dl (9-20); Calcium 9.6 mg/dl (8.4-10.2); Carbon Dioxide 28 mmol/L (22-30); Chloride 95 mmol/L (98-107); Estimated Creatinine Clearance 54 ml/min; Glucose 89 mg/dl (70-99); Magnesium 1.7 mg/dl (1.6-2.3); Potassium 4.1 mmol/L (3.5-5.1); Sodium 135 mmol/L (135-145); Total Bilirubin 0.7 mg/dl (0.2-1.3); Total Protein 7.2 g/dl (6.3-8.2); eGFR > 60.00
[2024-01-01 12:54] VITALS: BP 149/88
[2024-01-01] MEDS: OMNIPAQUE 50 ML PO (13:07)
--- NOTE | 2024-01-01 14:00 | HPS.HSE ---
Family Physician
-
Family Physician: Daniel Jimenez
Chief Complaint
-
Constipation
History of Present Illness
83-year-old man comes in with constipation. He has been constipated for the past 5 days; constipation is a chronic issue. He normally takes magnesium oxide, MiraLAX, Linzess and has been following with GI for chronic constipation/IBS. He has been
compliant with his medications. He has only been passing very small argelia of stool and occasional liquid stool over the past 5 days. Yesterday he took GoLytely x 2 bottles and still has not had a bowel movement. He has some generalized
abdominal discomfort, mild nausea but no vomiting. No other complaints. Denies prior surgical history. At the time of my exam he was standing, eating potato chips and a sandwich.
Medical History
Past Medical History
Past Medical History: Reports Other
Additional Past Medical History:
GERD,
essential HTN,
Hypercholesterolemia,
Anxiety
Constipation,
irritable bowel
Tonsilectomy
CAD (coronary artery disease)
CTA of the coronaries and no sig disease.
Tinnitus
DJD (degenerative joint disease)
Kyphosis (acquired) (postural)
Allergic rhinitis
BPH (benign prostatic hyperplasia)
Sinus bradycardia
SVT (supraventricular tachycardia)
NSVT (nonsustained ventricular tachycardia)
PAC (premature atrial contraction)
PVC (premature ventricular contraction)
Generalized anxiety disorder
Gastroparesis
Pacemaker
Past Surgical History: Reports Other
Additional Past Surgical History:
See above
Social History
Tobacco: Non-smoker
Alcohol: None
Drug: None
Personal:
Living: With Family
Family History
Family History: Not pertinent
Allergies / Home Medications
Allergies reflects when Allergies were last updated in [facility].
Home Medications with original date entered in [facility]
Allergy/Medication List:
Allergies
Allergy/AdvReac Type Severity Reaction Status Date / Time
aspirin Allergy Severe esopheageal Verified 01/01/24 08:37
pain
codeine Allergy Intermediate Nausea Verified 01/01/24 08:37
tramadol Allergy Intermediate Nausea Verified 01/01/24 08:37
diphenhydramine Allergy Unknown Unknown Verified 01/01/24 08:37
[From Benadryl]
metoclopramide [From Reglan] Allergy Unknown Unknown Verified 01/01/24 08:37
sertraline Allergy Unknown Unknown Verified 01/01/24 08:37
trazodone Allergy Unknown Unknown Verified 01/01/24 08:37
Home Medications
clopidogrel 75 mg tablet 75 mg PO HS Blood clot prevention/tx 12/20/21
desloratadine 5 mg tablet 5 mg PO DAILYPRN PRN Allergies 12/20/21
rosuvastatin 20 mg tablet 20 mg PO HS High cholesterol 12/20/21
linaclotide 290 mcg capsule (Linzess) 290 mcg PO DAILY Gastrointestinal Issue 09/17/23
lorazepam 0.5 mg tablet 0.5 mg PO HS Mental Health/Anxiety 09/17/23
magnesium oxide 400 mg (241.3 mg magnesium) tablet 400 mg PO BID Electrolyte Repletion 09/17/23
olopatadine 0.2 % eye drops 1 drp BOTH EYES DAILYPRN PRN allergy symptoms 09/17/23
pantoprazole 40 mg tablet,delayed release 40 mg PO DAILY Gastrointestinal Issue 09/17/23
polyethylene glycol 3350 17 gram oral powder packet (Miralax) 17 g PO BID Constipation 09/17/23
urea 15 gram oral powder packet (Ure-Na) 1 packet PO DAILY Kidney Disease 09/17/23
acetaminophen 325 mg tablet (Tylenol) 650 mg PO Q6HPRN PRN mild pain 10/15/23
amlodipine 2.5 mg tablet 5 mg PO HS 01/01/24
escitalopram oxalate 10 mg tablet 10 mg PO DAILY 01/01/24
lisinopril 5 mg tablet 5 mg PO DAILY 01/01/24
lorazepam 0.5 mg tablet 0.5 mg PO DAILYPRN PRN anxiety 01/01/24
metoprolol succinate 25 mg tablet,extended release 24 hr 25 mg PO DAILY 01/01/24
ondansetron 4 mg disintegrating tablet 4 mg PO DAILYPRN PRN nausea 01/01/24
Review of Systems
-
History Source: Patient
A 12 point ROS was completed and negative except as noted: Yes
Physical Exam
Vital Signs
Vital Signs
Temp Pulse Resp BP Pulse Ox
97.5 F 64 17 149/88 98
01/01/24 08:29 01/01/24 12:54 01/01/24 12:54 01/01/24 12:54 01/01/24 12:54
Physical Exam
General: Well Developed, Well Nourished, No Apparent Distress, Comfortable and Conversant
HEENT: Moist mucous membranes, Oval Conjunctivae, Nose Appears Normal and Ears Appear Normal
Respiratory: Clear
Cardiac: S1/S2 and Regular Rhythm
GI: Soft, Non Tender and Distended
Musculoskeletal: No Clubbing, No Cyanosis and No Edema
Skin: Warm and Dry; No Rash or Jaundice
Neuro: Awake, Alert, Oriented and AO x 3
Psych: Calm
Laboratory Results
-
01/01/24 08:51
01/01/24 08:51
Laboratory Results
Total Bilirubin 0.7 mg/dl (0.2-1.3) 01/01/24 08:51
AST 31 U/L (17-59) 01/01/24 08:51
ALT 30 U/L (0-50) 01/01/24 08:51
Alkaline Phosphatase 86 U/L (38-126) 01/01/24 08:51
Data Reviewed
-
Lab Data: Labs Reviewed by me
Impression/Plan
-
IMPRESSION:
83 man with acute on chronic constipation. So far he has had (without results):
Miralax BID
Mag citrate BID
4L GoLytely
Rectal exam (no impaction)
Enema x 2
PLAN:
1. complex acute on chronic constipation
CT scan pending
IV fluids
Walking
GI consult if no results by tomorrow
Consider ex-lax daily as a correction addendum to his meds
2. Chronic hyponatremia, NA today 135
Given acute urgency of constipation, give normal saline today only
Resume fluid restriction tomorrow
VCD for DVTp
Full code
--- NOTE | 2024-01-01 14:34 | CM ---
Chart reviewed. Patient here for ? ileus vs. acute on chronic complex constipation. CT results are pending. CM introduced self and role. Patient's son, Cristhian and patient's in room. He is independent. He drives. 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 He does not own any DME. He denies any +SDOHs. His son will provide transportation once he is discharged from the hospital. He has an active PCP and pharmacy. He lives in a bi-level home and has 14 steps to enter.
ANTICIPATED DISCHARGE DISPO: Home with , once medically cleared.
[2024-01-01] MEDS: NSS 1000 IV ×2 (16:37→20:59)
[2024-01-01 16:57] VITALS: BP 146/76
[2024-01-01 16:58] VITALS: BMI 21.8
--- NOTE | 2024-01-01 19:11 | PTCARENOTE ---
Received from [facility]. ISAMAR, THALIA WNL. Oriented to unit.
[2024-01-01] MEDS: MIRALAX 17 GRAMS PO (19:39)
[2024-01-01] MEDS: REFRESH EYE DROPS (PF) 1 DROPS OPHTH (20:58)
[2024-01-01] MEDS: CRESTOR 20 MG PO (20:59)
[2024-01-01] MEDS: MAGNESIUM OXIDE 500 MG PO (20:59)
[2024-01-01] MEDS: PLAVIX 75 MG PO (20:59)
[2024-01-01] MEDS: ATIVAN 0.5 MG PO (20:59)
[2024-01-01] MEDS: NORVASC 5 MG PO (20:59)
[2024-01-01 21:06] LABS: TSH 1.14 uIU/ml (0.47-4.68)
[2024-01-01 23:46] VITALS: BP 135/84
[2024-01-02] MEDS: NSS 1000 IV ×2 (03:01→06:02)
[2024-01-02] MEDS: PROTONIX 40 MG PO (06:01)
[2024-01-02] MEDS: LINZESS 290 MCG PO (06:01)
[2024-01-02] MEDS: LEXAPRO 10 MG PO (06:05)
[2024-01-02 07:15] LABS: Hematocrit 35.1 % (39.0-52.0); Hemoglobin 12.2 g/dL (13.0-18.0); Mean Corp Hgb Conc. 34.8 g/dL (33.0-37.0); Mean Corpuscular Hgb 35.2 pg (27.0-31.0); Mean Corpuscular Volume 101.2 fL (80.0-94.0); Mean Platelet Volume 9.7 fL (7.4-10.4); Platelet Count 180 10^3/uL (130-400); Red Blood Cell Count 3.47 10^6/uL (4.70-6.10); Red Cell Dist. Width 12.5 % (11.5-14.5); White Blood Cell Count 5.6 10^3/uL (4.8-10.8)
[2024-01-02 07:45] VITALS: BP 146/70
[2024-01-02 07:54] LABS: Blood Urea Nitrogen 16 mg/dl (9-20); Calcium 9.1 mg/dl (8.4-10.2); Carbon Dioxide 27 mmol/L (22-30); Chloride 101 mmol/L (98-107); Estimated Creatinine Clearance 55 ml/min; Glucose 89 mg/dl (70-99); Magnesium 1.9 mg/dl (1.6-2.3); Potassium 4.7 mmol/L (3.5-5.1); Sodium 137 mmol/L (135-145); eGFR > 60.00
[2024-01-02] MEDS: MIRALAX PO (07:54)
[2024-01-02] MEDS: URE-NA 15 GRAMS PO (07:54)
[2024-01-02] MEDS: MAGNESIUM OXIDE 500 MG PO (08:00)
[2024-01-02] MEDS: TOPROL XL 25 MG PO (08:01)
[2024-01-02] MEDS: ZESTRIL 5 MG PO (08:01)
--- NOTE | 2024-01-02 10:40 | W.PN.HOSP.TC ---
Today's Communication/Plan
-
dc to home
Assessment / Plan
Assessment / Plan
83 man with acute on chronic constipation. So far he has had (without results):
potential worsening of symptoms associated with Norvasc
Miralax BID
Mag citrate BID
4L GoLytely
Rectal exam (no impaction)
Enema x 2
essential HTN
stop Norvasc and increase dose of Toprol XL, need to check BP at home 1-2x per day regularly
PLAN:
1. complex acute on chronic constipation
CT scan:There is no evidence of intestinal obstruction. Mild colonic stool burden. There are bilateral inguinal hernias containing nonobstructed small bowel.
Slightly increased size of the heterogeneous left adrenal nodule with internal calcifications measuring 4.4 cm, previously 4.2 cm.
Prostatomegaly with a mildly distended urinary bladder.
7 mm cystic lesion within the pancreatic head, possible side branch IPMN or pseudocyst. Consider follow-up MRI abdomen to ensure stability.
Pt wants to go home, is feeling better
will need follow up with usual GI doctor, usually goes to [facility]
stop Norvasc, increase Toprol
2. Chronic hyponatremia, NA today 137
doing well
DC to home
see dictated note
extensive visit 60 minutes
VCD for DVTp
Full code
Anticipated Discharge: Today
Subjective/Interval History
-
Date of Service: January 02, 2024
Passing diarrhea stool, feels better currently than at time of admission
Objective Data
-
Labs:
Laboratory Results
01/02/24
06:54
WBC 5.6
Hgb 12.2 L
Hct 35.1 L
Plt Count 180
Sodium 137
Potassium 4.7
Chloride 101
Carbon Dioxide 27
BUN 16
Creatinine 0.9
Glucose 89
Calcium 9.1
Vital Signs:
Vital Signs
Temp Pulse Resp BP Pulse Ox
97 F 66 16 146/70 97
01/02/24 07:45 01/02/24 08:01 01/02/24 07:45 01/02/24 08:01 01/02/24 08:09
I&O
01/01/24 01/02/24 01/03/24
06:59 06:59 06:59
Intake Total 480 / 480
Output Total 1500 / 1500
Balance -1020 / -1020
Review of Systems
-
History Source: Patient and Family (reviewed with son, Cristhian)
Constitutional: Denies Fever
EENT: Reports No Symptoms Reported
Respiratory: Reports No Symptoms
Cardiac: Reports No Symptoms
Abdomen/GI: Reports Abdominal Pain (none currently, came in with it), Nausea (mild) and Diarrhea
Genitourinary: Reports No Symptoms
Neuro: Reports No Symptoms
Physical Exam
-
General: Well Developed, Well Nourished and No Apparent Distress
HEENT: Normocephalic, Atraumatic and Moist Mucous Membranes
Respiratory: Clear to Auscultation; Negative Wheezes, Rales or Rhonchi
Cardiac: Regular Rhythm and S1/S2
GI: Soft, Nontender and Nondistended; Negative Normal Bowel Sounds (hypoactive)
Musculoskeletal: No Clubbing, No Cyanosis and No Edema
Neuro: Awake, Alert and Oriented
[2024-01-02 10:55] VITALS: BP 144/75
[2024-01-02 11:28] VITALS: BP 144/75
--- NOTE | 2024-01-02 11:57 | W.DS.TRANS ---
DC Summary - [employer]
-
Discharge Instructions:
Discharge Diagnosis/Procedures Chronic Constipation
Diet Low Residue
Activity As tolerated
Driving Restrictions As prior to admission
Bathing Restrictions None
Instructions:
Stand-Alone Forms:
Changes to Home Medications: Yes
Discharge Medications:
DC Medications w/original date entered in [employer]
clopidogrel 75 mg tablet 75 mg PO HS Blood clot prevention/tx 12/20/21
desloratadine 5 mg tablet 5 mg PO DAILYPRN PRN Allergies 12/20/21
rosuvastatin 20 mg tablet 20 mg PO HS High cholesterol 12/20/21
linaclotide 290 mcg capsule (Linzess) 290 mcg PO DAILY Gastrointestinal Issue 09/17/23
lorazepam 0.5 mg tablet 0.5 mg PO HS Mental Health/Anxiety 09/17/23
magnesium oxide 400 mg (241.3 mg magnesium) tablet 400 mg PO BID Electrolyte Repletion 09/17/23
olopatadine 0.2 % eye drops 1 drp BOTH EYES DAILYPRN PRN allergy symptoms 09/17/23
pantoprazole 40 mg tablet,delayed release 40 mg PO DAILY Gastrointestinal Issue 09/17/23
polyethylene glycol 3350 17 gram oral powder packet (Miralax) 17 g PO BID Constipation 09/17/23
urea 15 gram oral powder packet (Ure-Na) 1 packet PO DAILY Kidney Disease 09/17/23
acetaminophen 325 mg tablet (Tylenol) 650 mg PO Q6HPRN PRN mild pain 10/15/23
escitalopram oxalate 10 mg tablet 10 mg PO DAILY 01/01/24
lisinopril 5 mg tablet 5 mg PO DAILY 01/01/24
lorazepam 0.5 mg tablet 0.5 mg PO DAILYPRN PRN anxiety 01/01/24
ondansetron 4 mg disintegrating tablet 4 mg PO DAILYPRN PRN nausea 01/01/24
metoprolol succinate 25 mg tablet,extended release 24 hr 25 mg PO BID #0 tabs 01/02/24
sennosides 8.6 mg-docusate sodium 50 mg tablet 1 tab PO BIDPRN PRN constipation #12 tabs 01/02/24
Home Medication Changes
stop Norvasc
increase Toprol to bid
Senna to use prn
Pending Results: No
--- NOTE | 2024-01-02 14:10 | CM ---
MD entered order for discharge.
Spoke with pt and son Cristhian . Pt said he was ready for dc.
Cristhian AWmike drive him home.
Offered Vn he declined VN need.
PLAN Home no needs
== END 2024-01-02 12:30 | disposition home or self-care (01) | DRG 392 ==
LOC: 4 EAST ACU 15:14
PROVIDERS: ADMITTING PHYSICIAN Internal Medicine; ATTENDING PHYSICIAN Internal Medicine; EMERGENCY PHYSICIAN Emergency Medicine; FAMILY PHYSICIAN Internal Medicine
DX: K58.1 Irritable bowel syndrome with constipation (principal); E87.1 Hypo-osmolality and hyponatremia; I47.20 Ventricular tachycardia, unspecified; I47.10 Supraventricular tachycardia, unspecified; I10 Essential (primary) hypertension; E78.00 Pure hypercholesterolemia, unspecified; K21.9 Gastro-esophageal reflux disease without esophagitis; F41.1 Generalized anxiety disorder; F32.A Depression, unspecified; I25.10 Atherosclerotic heart disease of native coronary artery without angina pectoris; N40.0 Benign prostatic hyperplasia without lower urinary tract symptoms; K31.84 Gastroparesis; I49.3 Ventricular premature depolarization; I49.1 Atrial premature depolarization; G89.29 Other chronic pain; Z95.0 Presence of cardiac pacemaker; Z88.6 Allergy status to analgesic agent; Z88.5 Allergy status to narcotic agent; Z88.8 Allergy status to other drugs, medicaments and biological substances; Z79.02 Long term (current) use of antithrombotics/antiplatelets; Z79.899 Other long term (current) drug therapy
CPT/HCPCS: 74022; 74177; 80048; 80053; 83735; 84443; 85025; 85027; 99285; Q9967

== ENCOUNTER → 2024-03-15 11:25 | Outpatient (REF) | payer MEDICARE, BC, SELFPAY | LOC: RAD 11:25 | PROVIDERS: ATTENDING PHYSICIAN Internal Medicine | DX: M88.9 Osteitis deformans of unspecified bone (principal) | CPT/HCPCS: 78306; A9503 ==

== ENCOUNTER 2024-04-05 17:59 | Emergency (ER) | payer MEDICARE, BC, SELFPAY ==
[2024-04-05 18:02] VITALS: BP 128/78
--- NOTE | 2024-04-05 18:04 | ED.MUSCINJ ---
HPI-Injury
<Tyree Ureña PA-C - Last Filed: 04/05/24 18:04>
General
Chief Complaint: Fall
Time Seen by Provider: 04/05/24 22:08
<Ashley Duque DO - Last Filed: 04/05/24 22:55>
General
Source: patient, spouse and previous hospital records (Previous hospitalization for acute on chronic constipation December 2023. Hospitalization October 2023 for iatrogenic pneumothorax after pacemaker insertion, treated conservatively.)
Exam Limitations: none
Nursing documentation reviewed up to this point in time: agreed with
History of Present Illness-Injury
Is this injury a work related problem?: No
Initial Injury comments:
This is an 83-year-old gentleman who resides at home with his . [id number]. He has history of CAD, hypertension, hyperlipidemia, gastroparesis, chronic constipation. While walking down the steps holding something in his right hand,
admits to not holding onto the railing as he normally does, lost his balance and fell down approximately 4-6 steps. He states he struck his left forearm and complains of pain and swelling and abrasion mid left forearm. He believes he may have
struck his head but denies loss of consciousness. He denies other injuries. No neck nor back pain, no weakness nor numbness. He denies dizziness nor lightheadedness. No chest pain or abdominal pain, no nausea nor vomiting.
He believes he is up-to-date with Tdap having received this within the past year or 2.
Chronically maintained on Plavix. Does not take aspirin.
He does not require assistive devices for ambulation.
No limitations in ADLs, continues to drive independently etc.
ED Provider Triage
<Tyree Ureña PA-C - Last Filed: 04/05/24 18:04>
-
Patient seen by provider in Triage?: Seen in Triage
Attestation: A medical screening examination has been initiated by a qualified medical provider. Based on the assessment performed at this time, it has been determined that an emergent medical condition may exist and the patient has been informed
that further medical evaluation and possible additional diagnostic testing may be needed.
HPI: 83-year-old male on Plavix presents via EMS after fall. He fell 4-6 steps. Injured his left elbow and forearm and struck his head at the bottom. He denies neck pain. On exam no cervical spine tenderness. CT of the head ordered x-ray left
elbow and forearm ordered
GENERAL: Alert , in no apparent distress
EYE: No visual abnormalities.
NECK: Trachea midline
ENT: No visible abnormalities.
LUNGS: No acute respiratory distress
NEUROLOGICAL: Alert and oriented
SKIN: Skin intact. No visible changes.
MUSCULOSKELETAL: Moving extremities normally
PSYCH: Normal and appropriate interaction.
This is a medical evaluation conducted in person to initiate diagnostic evaluation and provide initial therapeutics. Please see further documentation by the treating clinician.
Past History
<Tyree Ureña PA-C - Last Filed: 04/05/24 18:04>
Past History
ED Past Medical History: GERD, HTN, Hypercholesterolemia, Psychiatric (Anxiety) and Other (Constipation, irritable bowel)
ED Past Surgical History: Tonsilectomy
Social History
Tobacco: Non-smoker
Alcohol: None
Personal:
Living: with family
Employment: Retired
Family History
Family History: Other (Noncontributory)
<Ashley Duque DO - Last Filed: 04/05/24 22:55>
Past History
ED Past Medical History: CAD, GERD (Gastroparesis) and Other (BPH)
ED Past Surgical History: Cardiac (Pacemaker)
Phy Exam
<Ashley Duque DO - Last Filed: 04/05/24 22:55>
Physical Exam
Physical Exam:
TRAUMA EXAM:
VITAL SIGNS: Vital signs reviewed, cooperative. 83-year-old gentleman appears his stated age, awake and alert, pleasant, appears in no acute distress. is accompanying.
DISTRESS: No active disease
EYES: Pupils reactive, no orbital trauma
NOSE: No deformity or epistaxis
FACE AND SCALP: No scalp or facial trauma, external canals no blood
NECK: Supple nontender, full range of motion without difficulty nor pain.
BACK: Back nontender, pelvis stable to compression. Sits up with ease. No thoracic contusions.
RESPIRATORY: No distress, breath sounds normal, no tender chest wall
CARDIAC: No murmur, pulses equal and strong
ABDOMEN: Soft nontender bowel sounds normal
SKIN: Warm and dry, normal color. Fair turgor. Left posterior medial mid forearm has a superficial abrasion approximately 5 cm x 3 cm. Mild to moderate local soft tissue swelling, mild local ecchymosis. No active bleeding.
EXTREMITIES: Moderate tenderness mid left forearm, posteromedial aspect at area of local abrasion with local soft tissue swelling, local ecchymosis. There is very minimal tenderness left anterior elbow with full elbow range of motion with mild
elbow pain with range of motion. No crepitus. No soft tissue swelling about the elbow nor palpable effusion. No tenderness to the wrist. Full wrist range of motion without difficulty nor pain. Peripheral pulses are full and equal. Hand grasps
are full and equal. Distal sensation and strength intact.
NEUROLOGICAL: Alert, oriented, no motor deficits
PSYCH: Mood affect normal
Injury Course
Franciscolt;Tyree Ureña PA-C - Last Filed: 04/05/24 18:04>
Orders/Labs/Results
Orders:
Orders
04/05/24 18:02
CT Head W/o Iv Contrast Urgent
Comment:
Reason For Exam: fall
CR Elbow - Left Min 3 Views Urgent
Comment:
Reason For Exam: fall
CR Forearm - Left 2 View Urgent
Comment:
Reason For Exam: fall
04/05/24 22:29
Splints/Slings/Crut- Treatment ONCE
Crutches: No
Sling to: Left Arm
Location: Left
Type of Splint: Sugar Ton
Acetaminophen [Tylenol] 1,000 mg PO NOW STA
Cephalexin Monohydrate [Keflex] 500 mg PO NOW STA
<Ashley Duque, DO - Last Filed: 04/05/24 22:55>
Orders/Labs/Results
Orders:
Orders
04/05/24 18:02
CT Head W/o Iv Contrast Urgent
Comment:
Reason For Exam: fall
CR Elbow - Left Min 3 Views Urgent
Comment:
Reason For Exam: fall
CR Forearm - Left 2 View Urgent
Comment:
Reason For Exam: fall
04/05/24 22:29
Splints/Slings/Crut- Treatment ONCE
Crutches: No
Sling to: Left Arm
Location: Left
Type of Splint: Sugar Ton
Acetaminophen [Tylenol] 1,000 mg PO NOW STA
Cephalexin Monohydrate [Keflex] 500 mg PO NOW STA
<Ashley Duque, DO - Last Filed: 04/05/24 22:55>
MDM/Problems Addressed
Differential Diagnosis Includes:
Concern for left forearm fracture, potential elbow fracture. Concern for occult closed head injury as patient chronically maintained on Plavix.
CT of the head, left forearm and left elbow x-rays reviewed.
CT of the head is unremarkable. No traumatic findings.
Left forearm and elbow films revealed midshaft fracture of the ulna. There is also concern for irregular ossification at coronoid process of the ulna which could represent acute versus old injury.
As patient as patient does elicit some tenderness anterior aspect of the elbow must consider acute nondisplaced fracture of the coronoid process of the elbow. He is noted to have a midshaft fracture of the left ulna with overlying skin abrasion.
Upon physical exam and review of x-rays this does not appear to be an open fracture. No evidence of deep skin involvement/open wound to the ulna.
I have discussed with orthopedics on-call, Dr. Oropeza. I have shared pictures of abrasion as well as ulnar fracture images. He agrees that this does not appear to be an open fracture.
Nonetheless, agrees with coverage with antibiotic. He has been started on Keflex.
Due to history of gastroparesis, chronic constipation, advanced age, I am leery to prescribe an opioid pain medication.
Chronically maintained on Plavix, chronic gastroparesis thus NSAIDs are somewhat risky as well.
Will give a dose of Tylenol.
Will plan for sugar-tong splint and arm sling.
Dr. Oropeza recommends follow-up with one of their hand orthopedic specialists either Dr. Callaway or Dr. Allen.
Chronic conditions affecting care: HTN, CAD and Other (Gastroparesis, chronic constipation)
<Ashley Duque DO - Last Filed: 04/05/24 22:55>
*Radiology
Radiology exam reviewed: radiology read reviewed
*Pulse Oximetry
Patient hypoxic: no
*Critical Care Note
Total Time (30-74mins, 75-104mins- exclusive of procedures): Not Applicable
<Ashley Duque DO - Last Filed: 04/05/24 22:55>
Comment
Comment:
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 His does not drive.
As she is being placed in sugar-tong splint, arm sling is driving capabilities will be limited and thus recommend he avoid driving.
He does have family close by who can assist with transportation needs.
ED Attending Note
<Tyree Ureña PA-C - Last Filed: 04/05/24 18:04>
-
Portions of this chart may have been created with voice recognition software.� Occasional wrong word or��sound alike� substitutions may have occurred due to the inherent limitations of voice recognition software.
Discharge Plan
Departure
Patient Disposition: Home (Routine Discharge)
Date of Disposition: 04/05/24
Time of Disposition: 22:49
Patient with high blood pressure during this ER visit?: No
Condition: Good
Discharge Problem:
Left midshaft ulna fracture, coronoid avulsion fracture L elbow
Instructions: Preventing falls in adults, Elbow Fracture, Adult ED, How to care for a splint, Forearm fracture, How to use a shoulder sling
Prescriptions:
New
cephalexin 500 mg capsule
1,000 mg PO BID 5 Days Qty: 20 0RF
No Action
clopidogrel 75 mg Tablet
75 mg PO HS
desloratadine 5 mg Tablet
5 mg PO DAILYPRN PRN (Reason: Allergies)
rosuvastatin 20 mg Tablet
20 mg PO HS
polyethylene glycol 3350 [Miralax] 17 gram Powder In Packet
17 g PO BID
magnesium oxide 400 mg (241.3 mg magnesium) tablet
400 mg PO BID
pantoprazole 40 mg tablet,delayed release (DR/EC)
40 mg PO DAILY
Linzess 290 mcg capsule
290 mcg PO DAILY
Ure-Na 15 gram Powder In Packet
1 packet PO DAILY
lorazepam 0.5 mg tablet
0.5 mg PO HS
olopatadine 0.2 % Drops
1 drp BOTH EYES DAILYPRN PRN (Reason: allergy symptoms)
acetaminophen [Tylenol] 325 mg Tablet
650 mg PO Q6HPRN PRN (Reason: mild pain)
lorazepam 0.5 mg Tablet
0.5 mg PO DAILYPRN PRN (Reason: anxiety)
lisinopril 5 mg Tablet
5 mg PO DAILY
escitalopram oxalate 10 mg Tablet
10 mg PO DAILY
ondansetron 4 mg Tablet,Disintegrating
4 mg PO DAILYPRN PRN (Reason: nausea)
sennosides-docusate sodium 8.6-50 mg Tablet
1 tab PO BIDPRN PRN (Reason: constipation) Qty: 12 0RF
metoprolol succinate 25 mg Tablet Extended Release 24 Hr
25 mg PO BID Qty: 0 0RF
Referrals:
Reymundo Allen MD [Active] - Follow up in 2-3 days
UNKNOWN - PT DOES,NOT KNOW [Unknown Provider] -
Interventions
Interventions:
*Risk Screen - Suicide Last Done: 04/05/24 18:02
*General Assessment Last Done: 04/05/24 18:02
*Neglect/Abuse Screening Last Done: 04/05/24 21:29
*ED COVID-19 Vaccine History Last Done: 04/05/24 18:02
ED-Musculoskeletal Assessment Last Done: 04/05/24 21:29
ED- Neurological Assessment Last Done: 04/05/24 22:26
ED-Skin Assessment Last Done: 04/05/24 21:29
Discharge Date and Time
Print Language: YI
[2024-04-05 20:35] VITALS: BP 149/84
[2024-04-05] MEDS: KEFLEX 500 MG PO (22:34)
[2024-04-05] MEDS: TYLENOL 1000 MG PO (22:34)
[2024-04-05 23:20] VITALS: BP 179/94
== END 2024-04-05 23:20 | disposition home or self-care (01) ==
LOC: EMR 17:59
PROVIDERS: EMERGENCY PHYSICIAN Emergency Medicine; FAMILY PHYSICIAN Internal Medicine
DX: S52.222A Displaced transverse fracture of shaft of left ulna, initial encounter for closed fracture (principal); S52.042A Displaced fracture of coronoid process of left ulna, initial encounter for closed fracture; W10.9XXA Fall (on) (from) unspecified stairs and steps, initial encounter; I25.10 Atherosclerotic heart disease of native coronary artery without angina pectoris; I10 Essential (primary) hypertension; E78.00 Pure hypercholesterolemia, unspecified
CPT/HCPCS: 99284; 29125; 70450; 73080; 73090

== ENCOUNTER 2024-04-12 06:18 | Day surgery (SDC) | payer MEDICARE, BC, SELFPAY ==
[2024-04-12] VITALS (16 sets, daily range): BP systolic 134–195; BP diastolic 78–97; BMI 23.2
[2024-04-12] MEDS: NORMOSOL-R/PLASMALYTE-A 1000 IV (11:34)
[2024-04-12] MEDS: ATIVAN 0.5 MG IV (16:26)
[2024-04-12] MEDS: NSS (PRESERVATIVE FREE) 0.25 ML IV (16:34)
[2024-04-12] MEDS: ZESTRIL 5 MG PO (17:51)
== END 2024-04-12 18:59 | disposition home or self-care (01) ==
LOC: SDS 06:18
PROVIDERS: ATTENDING PHYSICIAN Orthopaedic Surgery Hand Surgery
DX: S52.202A Unspecified fracture of shaft of left ulna, initial encounter for closed fracture (principal); X58.XXXA Exposure to other specified factors, initial encounter
CPT/HCPCS: 25545; C1713

== ENCOUNTER → 2024-08-21 13:10 | Outpatient (REF) | payer MEDICARE, BC, SELFPAY ==
[2024-08-21 13:58] LABS: Hematocrit 35.2 % (39.0-52.0); Hemoglobin 11.8 g/dL (13.0-18.0); Mean Corp Hgb Conc. 33.5 g/dL (33.0-37.0); Mean Corpuscular Volume 98.6 fL (80.0-94.0); Platelet Count 222 10^3/uL (130-400); Red Cell Dist. Width 13.1 % (11.5-14.5)
== END ==
LOC: SDSPAT 13:10
PROVIDERS: ATTENDING PHYSICIAN Surgery; FAMILY PHYSICIAN Internal Medicine
DX: Z01.818 Encounter for other preprocedural examination (principal)
CPT/HCPCS: 36415; 85027

== ENCOUNTER 2024-09-04 06:10 | Day surgery (SDC) | payer MEDICARE, BC, SELFPAY ==
[2024-08-21 14:00] VITALS: BMI 22.8
[2024-09-04] VITALS (10 sets, daily range): BP systolic 130–159; BP diastolic 57–83; BMI 22.8
--- NOTE | 2024-09-04 07:06 | HP.FOC2 ---
Focused History & Physical
Chief Complaint
HPI:
Chief Complaint: Bilateral inguinal hernias
HPI / Indication for Planned Procedure: Patient is an 84-year-old male recently seen in outpatient surgical follow-up secondary to symptomatic bilateral inguinal hernias. Physical examination confirmed the presence of bilateral reducible inguinal
hernias. Medical history also notable for gastroparesis and chronic constipation which often exacerbates his inguinal hernias but his current bowel regiment has significantly improved his constipation to alleviate some of the symptoms.
Relevant Past Medical History: Other (CAD, hypertension, hyperlipidemia, DJD, GERD, BPH, SVT, IBS-c/gastroparesis, history of SIADH)
Relevant Social History: Negative
Relevant Family History: Negative
Relevant Past Surgical History: Positive for (Pacemaker, left ulnar ORIF)
Review of Systems
Review of Pertinent Systems: All Systems Negative
Medication
See Medication form for detailed medications: Yes
Medication List (including Herbals & OTC):
clopidogrel 75 mg tablet 75 mg PO HS Blood clot prevention/tx 12/20/21
desloratadine 5 mg tablet 5 mg PO DAILYPRN PRN Allergies 12/20/21
rosuvastatin 20 mg tablet 20 mg PO HS High cholesterol 12/20/21
linaclotide 290 mcg capsule (Linzess) 290 mcg PO DAILY Gastrointestinal Issue 09/17/23
magnesium oxide 400 mg (241.3 mg magnesium) tablet 400 mg PO BID Electrolyte Repletion 09/17/23
pantoprazole 40 mg tablet,delayed release 40 mg PO DAILY Gastrointestinal Issue 09/17/23
polyethylene glycol 3350 17 gram oral powder packet (Miralax) 17 g PO BID Constipation 09/17/23
escitalopram oxalate 10 mg tablet 10 mg PO DAILY 01/01/24
lisinopril 5 mg tablet 5 mg PO BID 01/01/24
ondansetron 4 mg disintegrating tablet 4 mg PO DAILYPRN PRN nausea 01/01/24
metoprolol succinate 25 mg tablet,extended release 24 hr 25 mg PO BID #0 tabs 01/02/24
acetaminophen 500 mg tablet 1,000 mg PO Q6H PRN pain 07/21/25
Medications Reviewed: Yes
Allergies and Reactions
Patient has Allergies: Yes
Noted Allergies and Reactions:
Allergy/AdvReac Type Severity Reaction Status Date / Time
aspirin Allergy esopheageal Verified 08/28/24 11:00
pain
codeine Allergy Nausea Verified 08/28/24 11:00
diphenhydramine (From Allergy 'jittery Verified 08/28/24 11:00
Benadryl) and hyper'
metoclopramide (From Reglan) Allergy 'side Verified 08/28/24 11:00
effects
were too
severe'
sertraline Allergy unable to Verified 08/28/24 11:00
tolerate
tramadol Allergy Nausea and Verified 08/28/24 11:00
weakness
trazodone Allergy 'go crazy' Verified 08/28/24 11:00
Pertinent Physical Exam
All Other Systems: Negative
Head/Neck: Normal
Lungs: Normal
Heart: Normal
Abdomen: Other (Soft, nondistended, reducible bilateral inguinal hernias)
Extremities: Normal
Neurological: Normal
Diagnosis / Assessment
84-year-old male presenting for scheduled operative correction bilateral inguinal hernias
Plan / Procedure
Robotic assisted laparoscopic repair of bilateral inguinal hernias with mesh
Anesthesia/Sedation to be done by Anesthesia Provider: Yes
--- NOTE | 2024-09-04 07:10 | W.SUR.PREOP ---
Pre-Operative Surgical Note
-
I have examined this patient prior to the performance of the scheduled procedure.
The patient's condition is unchanged from the time of the current History and
Physical and the patient is able to undergo the scheduled procedure.
[2024-09-04] MEDS: NORMOSOL-R/PLASMALYTE-A 1000 IV (08:49)
[2024-09-04] MEDS: TYLENOL 1000 MG PO (08:49)
--- NOTE | 2024-09-04 11:31 | W.IMMPOSTOP ---
Addendum entered and electronically signed by Sunil Greene MD 09/04/24 11:43:
#[id number]
Original Note:
Surgical Immed Post Op Note
-
Primary Surgeon: Sunil Greene MD
Assisting Surgeon: Ronda Blanco PA-C
Pre-op Diagnosis: Bilateral inguinal hernias
Post-op Diagnosis: Bilateral inguinal hernias; direct with smaller indirect component
Procedure Performed: Robotic assisted laparoscopic repair of bilateral inguinal hernias with mesh; 3D max large regular weight
Anesthesia Type: GETA +0.25% Marcaine
Specimen / Cultures: None
Estimated Blood Loss: 12 mL
Complications: None immediate
Operative Findings: Sizable bilateral direct inguinal hernias with smaller indirect inguinal hernia component. Right side lipoma of spermatic cord reduced and excised for mesh placement. Left spermatic cord without visible lipoma. 3D max large
regular rate mesh repair. Pseudosac of direct space partially reduced and secured to Bill's ligament with 2-0 Vicryl stitch on either respective side. No significant surgical blood loss but tissue planes a bit more oozy in the setting of chronic
Plavix use.
The assistance of Ronda Blanco PA-C was required due to the complexity of the procedure. During the procedure Ronda Blanco PA-C assisted with port placement, robotic instrumentation and suture material exchanges, and closure of the surgical incision
sites. I was present for the entirety of the operative procedure.
[2024-09-04] MEDS: MORPHINE SULFATE 1 MG IV (11:58)
== END 2024-09-04 14:40 | disposition home or self-care (01) ==
LOC: SDS 06:10
PROVIDERS: ATTENDING PHYSICIAN Surgery; FAMILY PHYSICIAN Internal Medicine
DX: K40.20 Bilateral inguinal hernia, without obstruction or gangrene, not specified as recurrent (principal)
CPT/HCPCS: 49650; C1781